=== PATIENT | female | born 1980 | race Caucasian/White ===

== ENCOUNTER 2018-07-24 13:49 | Emergency (ER) | payer OTHER ==
[2018-07-24 14:43] VITALS: O2SAT 98
[2018-07-24] MEDS ORDERED: Sodium Chloride 0.9% 1000 ML 1,000 ML IV STA (15:06)
[2018-07-24] MEDS ORDERED: MORPHINE SULFATE 4 MG INJ IV ONE ×2 (15:07→16:25)
[2018-07-24] MEDS ORDERED: Zofran 4 MG/2 ML VIAL IV ONE (15:09)
--- NOTE | 2018-07-24 15:12 | ERPHSYRPT ---
- History of Present Illness Time Seen by Provider: 07/24/18 15:01 Source: patient Exam Limitations: no limitations Patient Subjective Stated Complaint: MIGRAINE FOR 4 DAYS, VOMITING DAILY FROM PAIN. PAIN ON LEFT SIDE OF HEAD, BEHIND EYE. CONSTANT THROBBING PAIN. Triage Nursing Assessment: PAIN 10/10 BEHIND LEFT EYE. ALERT AND ORIENTED. ABLE TO WALKIN INTO ED. TEARFUL. Physician History: 37-year-old white female arrives with complaint of headache left-sided head symptoms for 4 days also some nausea no vomiting no fevers some photophobia. Past medical history includes migraines, diabetes type 1, depression. Past surgical history includes tubal ligation, hand surgery back surgery. Timing/Duration: day(s) (4 days) Severity: moderate Modifying Factors: Improves With: nothing Associated Symptoms: nausea, headaches, other (patient states her blood sugar was running a low so she stopped her insulin pump), No vomiting, No abdominal pain, No shortness of breath, No diaphoresis, No cough, No chills, No chest pain , No fever, No loss of appetite, No malaise, No rash, No syncope, No seizure Allergies/Adverse Reactions: No Known Drug Allergies Allergy (Unverified 07/24/18 14:11) Home Medications: Amitriptyline HCl 10 mg [Elavil 10 mg] 10 mg PO HS 07/24/18 [History] Bupropion HCl 150 mg Sr [Wellbutrin SR 150 MG] 300 mg PO DAILY 07/24/18 [ History] Hx Tetanus, Diphtheria Vaccination/Date Given: No Hx Influenza Vaccination/Date Given: No Hx Pneumococcal Vaccination/Date Given: No Immunizations Up to Date: No - Review of Systems Constitutional: No Fever, No Chills Eyes: Photophobia, No Discharge, No Eye Pain, No Eye Redness, No Itchy, No Tearing, No Vision Changes, No Double Vision Ears, Nose, & Throat: No Symptoms Respiratory: No Cough, No Dyspnea Cardiac: No Chest Pain, No Edema, No Syncope Abdominal/Gastrointestinal: No Abdominal Pain, No Nausea, No Vomiting, No Diarrhea Genitourinary Symptoms: No Dysuria Musculoskeletal: No Back Pain, No Neck Pain Skin: No Rash Neurological: Headache, No Dizziness, No Focal Weakness, No Gait Changes, No Irritability, No Lethargy, No Paralysis, No Parasthesia, No Seizure, No Sensory Changes, No Speech Changes, No Tics, No Tremors, No Vertigo Psychological: No Symptoms Endocrine: No Symptoms All Other Systems: Reviewed and Negative - Past Medical History Pertinent Past Medical History: Yes Neurological History: Migraines ENT History: No Pertinent History Cardiac History: No Pertinent History Respiratory History: No Pertinent History Endocrine Medical History: Diabetes Type I Musculoskeletal History: No Pertinent History GI Medical History: No Pertinent History History: No Pertinent History Psycho-Social History: Depression - Past Surgical History Past Surgical History: Yes Female Surgical History: Section, Tubal Ligation Other Surgical History: 3 HAND SURGERY, BACK SURGERY, X 2 - Social History Smoking Status: Current every day smoker Exposure to second hand smoke: Yes Drug Use: none Patient Lives Alone: No - Female History Hx Last Menstrual Period: 07/09/13 Hx Now: No - Nursing Vital Signs Nursing Vital Signs: Initial Vital Signs Pulse Rate 84 07/24/18 13:50 Respiratory Rate 22 07/24/18 13:50 Blood Pressure 108/76 07/24/18 13:50 O2 Sat by Pulse Oximetry 97 07/24/18 13:50 Pain Scale Pain Intensity 8 - Physical Exam General Appearance: moderate distress, alert Eye Exam: PERRL/EOMI, eyes nml inspection Ears, Nose, Throat Exam: normal ENT inspection, TMs normal, pharynx normal, moist mucous membranes Neck Exam: normal inspection, non-tender, supple, full range of motion Respiratory Exam: normal breath sounds, lungs clear, No respiratory distress Cardiovascular Exam: regular rate/rhythm, normal heart sounds, normal peripheral pulses, capillary refill <2 sec Gastrointestinal/Abdomen Exam: soft, normal bowel sounds, No tenderness, No mass Back Exam: normal inspection, normal range of motion, No CVA tenderness, No vertebral tenderness Extremity Exam: normal inspection, normal range of motion, pelvis stable Neurologic Exam: alert, oriented x 3, cooperative, 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, normal mood/affect, nml cerebellar function, nml station & gait, sensation nml, No motor deficits Skin Exam: normal color, warm, dry, No rash Lymphatic Exam: No adenopathy SpO2 Interpretation: normal (98%) SpO2: 98 Ordered Tests: Active Orders 24 hr Category Date Time Status IV Insertion STAT Care 07/24/18 15:06 Active CBC W DIFF Stat Lab 07/24/18 15:25 Completed CMP Stat Lab 07/24/18 15:25 Completed Medication Summary Discontinued Medications Generic Name Dose Route Start Last Admin Trade Name Behzad PRN Reason Stop Dose Admin Sodium Chloride 1,000 mls @ 999 mls/hr 07/24/18 15:06 07/24/18 17:03 Sodium Chloride 0.9% 1000 Ml IV 07/24/18 16:06 Infused .Q1H1M STA Infusion Sodium Chloride Confirm 07/24/18 15:14 Sodium Chloride 0.9% 1000 Ml Administered 07/24/18 15:15 Dose 1,000 mls @ ud .ROUTE .STK-MED ONE Morphine Sulfate 4 mg 07/24/18 15:07 07/24/18 15:31 Morphine Sulfate 4 Mg Inj IV 07/24/18 15:08 4 mg STAT ONE Administration Morphine Sulfate Confirm 07/24/18 15:14 Morphine Sulfate 4 Mg Inj Administered 07/24/18 15:15 Dose 4 mg .ROUTE .STK-MED ONE Morphine Sulfate 4 mg 07/24/18 16:25 07/24/18 16:29 Morphine Sulfate 4 Mg Inj IV 07/24/18 16:26 4 mg STAT ONE Administration Morphine Sulfate Confirm 07/24/18 16:27 Morphine Sulfate 4 Mg Inj Administered 07/24/18 16:28 Dose 4 mg .ROUTE .STK-MED ONE Ondansetron HCl 4 mg 07/24/18 15:09 07/24/18 15:31 Zofran 4 Mg/2 Ml Vial IV 07/24/18 15:10 4 mg STAT ONE Administration Ondansetron HCl Confirm 07/24/18 15:14 Zofran 4 Mg/2 Ml Vial Administered 07/24/18 15:15 Dose 4 mg .ROUTE .STK-MED ONE Lab/Rad Data: Laboratory Result Diagrams 07/24/18 15:25 07/24/18 15:25 Laboratory Results 07/24/18 07/24/18 Range/Units 15:25 15:25 WBC 15.7 H (4.0-10.5) K/mm3 RBC 4.65 (4.1-5.4) M/mm3 Hgb 14.6 (12.0-16.0) gm/dl Hct 44.5 (35-47) % MCV 95.7 (78-100) fl MCH 31.4 (26-32) pg MCHC 32.8 (32-36) g/dl RDW 12.6 (11.5-14.0) % Plt Count 206 (150-450) K/mm3 MPV 11.0 H (6-9.5) fl Gran % 89.0 H (36.0-66.0) % Eos # (Auto) 0.02 (0-0.5) Absolute Lymphs (auto) 1.09 (1.0-4.6) Absolute Monos (auto) 0.58 (0.0-1.3) Lymphocytes % 7.0 L (24.0-44.0) % Monocytes % 3.7 (0.0-12.0) % Eosinophils % 0.1 (0.00-5.0) % Basophils % 0.2 (0.0-0.4) % Absolute Granulocytes 13.96 H (1.4-6.9) Basophils # 0.03 (0-0.4) Sodium 138 (137-145) mmol/L Potassium 4.3 (3.5-5.1) mmol/L Chloride 106 (98-107) mmol/L Carbon Dioxide 23 (22-30) mmol/L Anion Gap 13.3 (5-15) MEQ/L BUN 16 (7-17) mg/dL Creatinine 0.61 (0.52-1.04) mg/dL Estimated GFR > 60.0 ML/MIN Glucose 204 H (74-106) mg/dL Calcium 8.6 (8.4-10.2) mg/dL Total Bilirubin 0.90 (0.2-1.3) mg/dL AST 20 (14-36) U/L ALT 13 (0-35) U/L Alkaline Phosphatase 77 (38-126) U/L Serum Total Protein 6.6 (6.3-8.2) g/dL Albumin 3.4 L (3.5-5.0) g/dL - Progress Progress: improved Progress Note: 07/24/18 17:13 Patient feeling better after 8 mg morphine and 1 L of normal saline and 4 mg of Zofran. Will discharge patient. - Departure Departure Disposition: Home Clinical Impression: Migraine headache Qualifiers: Migraine type: unspecified Status migrainosus presence: without status migrainosus Intractability: not intractable Qualified Code(s): G43.909 - Migraine, unspecified, not intractable, without status migrainosus Condition: Fair Critical Care Time: No Referrals: EILEEN AREVALO [Primary Care Provider] - Instructions: Headache, Adult (DC) Additional Instructions: Return home. Rest in a dark quiet room. Followup with your family . Return for acute distress or for severe symptoms.
[2018-07-24] MEDS ORDERED: Sodium Chloride 0.9% 1000 ML 1,000 ML ONE (15:14)
[2018-07-24] MEDS ORDERED: Zofran 4 MG/2 ML VIAL ONE (15:14)
[2018-07-24] MEDS ORDERED: MORPHINE SULFATE 4 MG INJ ONE ×2 (15:14→16:27)
[2018-07-24 15:30] LABS: BASOPHIL % 0.2 % (0.0-0.4); Basophil (Absolute #) 0.03 (0-0.4); Eosinophil % 0.1 % (0.00-5.0); Eosinophil (Absolute #) 0.02 (0-0.5); Granulocyte Absolute (ANC) 13.96 (1.4-6.9); Hematocrit 44.5 % (35-47); Hemoglobin 14.6 gm/dl (12.0-16.0); Lymphocyte (Absolute #) 1.09 (1.0-4.6); Mean Cell Volume 95.7 fl (78-100); Mean Corpuscular Hemoglobin 31.4 pg (26-32); Mean Corpuscular Hgb Concent. 32.8 g/dl (32-36); Monocyte (Absolute #) 0.58 (0.0-1.3); Monocytes % 3.7 % (0.0-12.0); Platelet Count 206 K/mm3 (150-450); Red Blood Count 4.65 M/mm3 (4.1-5.4); Red Cell Distribution Width 12.6 % (11.5-14.0); White Blood Count 15.7 K/mm3 (4.0-10.5)
[2018-07-24 16:15] LABS: ALBUMIN 3.4 g/dL (3.5-5.0); ALKALINE PHOSPHATASE 77 U/L (38-126); ANION GAP 13.3 MEQ/L (5-15); BLOOD UREA NITROGEN 16 mg/dL (7-17); CHLORIDE 106 mmol/L (98-107); Calcium 8.6 mg/dL (8.4-10.2); Carbon Dioxide 23 mmol/L (22-30); Creatinine 1 0.61 mg/dL (0.52-1.04); Glucose 204 mg/dL (74-106); Potassium 4.3 mmol/L (3.5-5.1); SGOT/AST 20 U/L (14-36); SGPT/ALT 13 U/L (0-35); SODIUM 138 mmol/L (137-145); Total Protein 6.6 g/dL (6.3-8.2)
[2018-07-24 17:25] VITALS: BP 113/78; PULSE 72
== END 2018-07-24 17:26 | disposition home or self-care (01) ==
LOC: ED 13:49
DX: G43.909 Migraine, unspecified, not intractable, without status migrainosus (principal)
CPT/HCPCS: 36415; 80053; 85025; 96360; 96374; 96375; 96376; 99284; J2270; J2405

== ENCOUNTER 2021-08-23 11:24 | Emergency (ER) | payer OTHER ==
--- NOTE | 2021-08-23 11:55 | ERPHSYRPT ---
- History of Present Illness Time Seen by Provider: 08/23/21 11:45 Source: patient Exam Limitations: no limitations Patient Subjective Stated Complaint: Dizziness Triage Nursing Assessment: Patient brought back to ED per w/c and transferred self to bed. Patient A+O X3. Patient's skin pink, warm and dry. Patient complains of dizziness that started at 1900 last night then she started vomiting. Patient states she has not stopped vomiting since last night. Patient complains of abdominal pain 5/10. Physician History: This is a 40-year-old obese white female patient of Dr. Chandan Woodard has history of diabetes and depression and is a current daily smoker of cigarettes and presents with severe dizziness that began at 7 PM last evening. Subsequently, she experienced multiple episodes of vomiting and diarrhea as well as having severe, significant abdominal pain today. She denies chest pain. She denies cough. She knows no other individuals similar symptoms or who has been diagnosed with flus. Patient states her mouth is on fire from vomiting so many times. She has had sections in the past but no other abdominal surgeries. She denies having fevers. She denies dysuria or hematuria. She denies trauma to her head. She has no neck pain. Timing/Duration: yesterday Severity: moderate Associated Symptoms: nausea, vomiting, abdominal pain, No shortness of breath, No chest pain, No fever, No headaches Allergies/Adverse Reactions: No Known Drug Allergies Allergy (Verified 08/23/21 11:32) Hx Tetanus, Diphtheria Vaccination/Date Given: No Hx Influenza Vaccination/Date Given: Yes Hx Pneumococcal Vaccination/Date Given: No Immunizations Up to Date: Yes Travel Risk - International Travel Have you traveled outside of the country in past 3 weeks: No - Coronavirus Screening Are you exhibiting any of the following symptoms?: No Close contact with a COVID-19 positive Pt in past 14-21 Days: No - Vaccine Status Have you recieved a Covid-19 vaccination: Yes 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: [employer] - Review of Systems Constitutional: No Symptoms Eyes: No Symptoms Ears, Nose, & Throat: No Symptoms Respiratory: No Symptoms Cardiac: No Symptoms Abdominal/Gastrointestinal: Abdominal Pain, Nausea, Vomiting, Diarrhea, No Constipation Genitourinary Symptoms: No Symptoms Musculoskeletal: No Symptoms Skin: No Symptoms Neurological: Dizziness, Headache Psychological: No Symptoms Endocrine: No Symptoms Hematologic/Lymphatic: No Symptoms Immunological/Allergic: No Symptoms All Other Systems: Reviewed and Negative - Past Medical History Pertinent Past Medical History: Yes Neurological History: Migraines ENT History: No Pertinent History Cardiac History: No Pertinent History Respiratory History: No Pertinent History Endocrine Medical History: Diabetes Type I Musculoskeletal History: No Pertinent History GI Medical History: No Pertinent History History: No Pertinent History Psycho-Social History: Depression - Past Surgical History Past Surgical History: Yes Female Surgical History: Section, Tubal Ligation Other Surgical History: 3 HAND SURGERY, BACK SURGERY, X 2 - Social History Smoking Status: Current every day smoker How long have you smoked: years Exposure to second hand smoke: Yes Drug Use: none Patient Lives Alone: No - Female History Hx Last Menstrual Period: July 28 Hx Now: No - Nursing Vital Signs Nursing Vital Signs: Initial Vital Signs Temperature 97.6 F 08/23/21 11:33 Pulse Rate 81 08/23/21 11:33 Respiratory Rate 18 08/23/21 11:33 Blood Pressure 178/89 08/23/21 11:33 O2 Sat by Pulse Oximetry 99 08/23/21 11:33 Pain Scale Pain Intensity 4 - Physical Exam General Appearance: mild distress, alert, anxiety, obese Eye Exam: PERRL/EOMI, eyes nml inspection Ears, Nose, Throat Exam: normal ENT inspection, moist mucous membranes Neck Exam: normal inspection, non-tender, supple, full range of motion Respiratory Exam: normal breath sounds, lungs clear, airway intact, No chest tenderness, No respiratory distress Cardiovascular Exam: regular rate/rhythm, normal heart sounds, normal peripheral pulses Gastrointestinal/Abdomen Exam: soft, normal bowel sounds, tenderness (Generalized), guarding (Generalized to palpation), No pulsatile mass, No rebound Pelvic Exam: not done Rectal Exam: not done Back Exam: normal inspection, normal range of motion, No CVA tenderness, No vertebral tenderness Extremity Exam: normal inspection, normal range of motion, pelvis stable Neurologic Exam: alert, oriented x 3, cooperative, hatchery 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 No comparison EKG.) Ordered Tests: Active Orders 24 hr Category Date Time Status EKG-ER Only STAT Care 08/23/21 12:03 Active IV Insertion STAT Care 08/23/21 12:03 Active ABDOMEN AND PELVIS W/0 CONTRAS [CT] Stat Exams 08/23/21 12:05 Completed HEAD WITHOUT CONTRAST [CT] Stat Exams 08/23/21 12:04 Completed AMYLASE Stat Lab 08/23/21 12:07 Completed CBC W DIFF Stat Lab 08/23/21 12:03 Completed CMP Stat Lab 08/23/21 12:07 Completed CULTURE,URINE Stat Lab 08/23/21 12:07 Received HCG,QUALITATIVE URINE Stat Lab 08/23/21 12:07 Completed LIPASE Stat Lab 08/23/21 12:07 Completed Lactic Acid Stat Lab 08/23/21 12:07 Completed MAGNESIUM Stat Lab 08/23/21 12:07 Completed UA W/RFX CULTURE Stat Lab 08/23/21 12:07 Completed Medication Summary Generic Name Dose Route Start Last Admin Trade Name Freq PRN Reason Stop Dose Admin Sodium Chloride 1,000 mls @ 999 mls/hr 08/23/21 12:50 08/23/21 13:21 Sodium Chloride 0.9% 1000 Ml IV 08/23/21 13:50 999 mls/hr .Q1H1M STA Administration Sodium Chloride 500 mls @ 500 mls/hr 08/23/21 13:32 Sodium Chloride 0.9% 500 Ml IV 08/23/21 14:31 .Q1H ONE Discontinued Medications Generic Name Dose Route Start Last Admin Trade Name Freq PRN Reason Stop Dose Admin Hydromorphone HCl 1 mg 08/23/21 12:06 08/23/21 12:09 Hydromorphone 1 Mg/1ml Inj 1 Mg/Ml Syringe IV 08/23/21 12:07 1 mg STAT ONE Administration Hydromorphone HCl Confirm 08/23/21 12:08 Hydromorphone 1 Mg/1ml Inj 1 Mg/Ml Syringe Administered 08/23/21 12:09 Dose 1 mg .ROUTE .STK-MED ONE Sodium Chloride 1,000 mls @ 999 mls/hr 08/23/21 12:03 08/23/21 13:17 Sodium Chloride 0.9% 1000 Ml IV 08/23/21 13:03 Infused .Q1H1M STA Infusion Sodium Chloride Confirm 08/23/21 12:08 Sodium Chloride 0.9% 1000 Ml Administered 08/23/21 12:09 Dose 1,000 mls @ ud .ROUTE .STK-MED ONE Sodium Chloride Confirm 08/23/21 13:20 Sodium Chloride 0.9% 1000 Ml Administered 08/23/21 13:21 Dose 1,000 mls @ ud .ROUTE .STK-MED ONE Meclizine HCl 25 mg 08/23/21 13:47 Meclizine Hcl 25 Mg Tablet PO 08/23/21 13:48 STAT ONE Ondansetron HCl 4 mg 08/23/21 12:03 08/23/21 12:09 Ondansetron Hcl 4 Mg/2 Ml Vial IV 08/23/21 12:04 4 mg STAT ONE Administration Ondansetron HCl Confirm 08/23/21 12:08 Ondansetron Hcl 4 Mg/2 Ml Vial Administered 08/23/21 12:09 Dose 4 mg .ROUTE .STK-MED ONE Lab/Rad Data: Laboratory Result Diagrams 08/23/21 12:03 08/23/21 12:07 Laboratory Results 08/23/21 08/23/21 08/23/21 Range/Units 12:07 12:07 12:07 WBC (4.0-10.5) x10^3/uL RBC (4.1-5.4) x10^6/uL Hgb (12.0-16.0) g/dL Hct (35-47) % MCV (78-100) fL MCH (26-32) pg MCHC (32-36) g/dL RDW (11.5-14.0) % Plt Count (150-450) x10^3/uL MPV (7.5-11.0) fL Gran % (36.0-66.0) % Immature Gran % (Auto) (0.00-0.4) % Nucleat RBC Rel Count (0.00-0.1) % Eos # (Auto) (0-0.5) x10^3/uL Immature Gran # (Auto) (0.00-0.03) x10^3u/L Absolute Lymphs (auto) (1.0-4.6) x10^3/uL Absolute Monos (auto) (0.0-1.3) x10^3/uL Absolute Nucleated RBC (0.00-0.01) x10^3u/L Lymphocytes % (24.0-44.0) % Monocytes % (0.0-12.0) % Eosinophils % (0.00-5.0) % Basophils % (0.0-0.4) % Absolute Granulocytes (1.4-6.9) x10^3/uL Basophils # (0-0.4) x10^3/uL Sodium (137-145) mmol/L Potassium (3.5-5.1) mmol/L Chloride (98-107) mmol/L Carbon Dioxide (22-30) mmol/L Anion Gap (5-15) MEQ/L BUN (7-17) mg/dL Creatinine (0.52-1.04) mg/dL Estimated GFR ML/MIN Glucose (74-106) mg/dL Lactic Acid (0.4-2.0) Calcium (8.4-10.2) mg/dL Magnesium (1.6-2.3) mg/dL Total Bilirubin (0.2-1.3) mg/dL AST (14-36) U/L ALT (0-35) U/L Alkaline Phosphatase (38-126) U/L Serum Total Protein (6.3-8.2) g/dL Albumin (3.5-5.0) g/dL Amylase 62 (30-110) U/L Lipase 16 L (23-300) U/L Urinalys Dipstick Clnc MAIN LAB Urine Color DARK YELLOW (YELLOW) Urine Appearance CLEAR (CLEAR) Urine pH 5.5 (5-6) Ur Specific [place] >=1.030 (1.005-1.025) POC Urine Protein Conf 100 (Negative) Urine Ketones MODERATE-40 (NEGATIVE) Urine Nitrite NEGATIVE (NEGATIVE) Urine Bilirubin NEGATIVE (NEGATIVE) Urine Urobilinogen 0.2 (0-1) mg/dL Urine Leukocytes NEGATIVE (NEGATIVE) Urine WBC (Auto) 0-2 (0-5) /HPF Urine RBC (Auto) NONE (0-2) /HPF U Epithel Cells (Auto) RARE (FEW) /HPF Urine Bacteria (Auto) RARE (NEGATIVE) /HPF Urine RBC TRACE-LYSED (0-5) Ghassan/ul Urine Mucus (Auto) SLIGHT (NEGATIVE) /HPF Ur Culture Indicated? YES Urine Glucose NEGATIVE (NEGATIVE) mg/dL Urine HCG, Qual NEGATIVE (Negative) 08/23/21 08/23/21 08/23/21 Range/Units 12:07 12:07 12:03 WBC 20.0 H (4.0-10.5) x10^3/uL RBC 4.69 (4.1-5.4) x10^6/uL Hgb 14.8 (12.0-16.0) g/dL Hct 44.0 (35-47) % MCV 93.8 (78-100) fL MCH 31.6 (26-32) pg MCHC 33.6 (32-36) g/dL RDW 12.4 (11.5-14.0) % Plt Count 251 (150-450) x10^3/uL MPV 11.6 H (7.5-11.0) fL Gran % 92.4 H (36.0-66.0) % Immature Gran % (Auto) 0.4 (0.00-0.4) % Nucleat RBC Rel Count 0.0 (0.00-0.1) % Eos # (Auto) 0 (0-0.5) x10^3/uL Immature Gran # (Auto) 0.08 H (0.00-0.03) x10^3u/L Absolute Lymphs (auto) 0.75 L (1.0-4.6) x10^3/uL Absolute Monos (auto) 0.65 (0.0-1.3) x10^3/uL Absolute Nucleated RBC 0.00 (0.00-0.01) x10^3u/L Lymphocytes % 3.8 L (24.0-44.0) % Monocytes % 3.3 (0.0-12.0) % Eosinophils % 0.0 (0.00-5.0) % Basophils % 0.1 (0.0-0.4) % Absolute Granulocytes 18.48 H (1.4-6.9) x10^3/uL Basophils # 0.02 (0-0.4) x10^3/uL Sodium 140 (137-145) mmol/L Potassium 3.6 (3.5-5.1) mmol/L Chloride 103 (98-107) mmol/L Carbon Dioxide 23 (22-30) mmol/L Anion Gap 17.8 H (5-15) MEQ/L BUN 19 H (7-17) mg/dL Creatinine 0.76 (0.52-1.04) mg/dL Estimated GFR > 60.0 ML/MIN Glucose 209 H (74-106) mg/dL Lactic Acid 2.7 H (0.4-2.0) Calcium 9.8 (8.4-10.2) mg/dL Magnesium 1.6 (1.6-2.3) mg/dL Total Bilirubin 1.00 (0.2-1.3) mg/dL AST 30 (14-36) U/L ALT 17 (0-35) U/L Alkaline Phosphatase 97 (38-126) U/L Serum Total Protein 8.2 (6.3-8.2) g/dL Albumin 4.6 (3.5-5.0) g/dL Amylase (30-110) U/L Lipase (23-300) U/L Urinalys Dipstick Clnc Urine Color (YELLOW) Urine Appearance (CLEAR) Urine pH (5-6) Ur Specific [place] (1.005-1.025) POC Urine Protein Conf (Negative) Urine Ketones (NEGATIVE) Urine Nitrite (NEGATIVE) Urine Bilirubin (NEGATIVE) Urine Urobilinogen (0-1) mg/dL Urine Leukocytes (NEGATIVE) Urine WBC (Auto) (0-5) /HPF Urine RBC (Auto) (0-2) /HPF U Epithel Cells (Auto) (FEW) /HPF Urine Bacteria (Auto) (NEGATIVE) /HPF Urine RBC (0-5) Ghassan/ul Urine Mucus (Auto) (NEGATIVE) /HPF Ur Culture Indicated? Urine Glucose (NEGATIVE) mg/dL Urine HCG, Qual (Negative) - Progress Progress: improved Progress Note: 08/23/21 13:28 CAT scan of the abdomen pelvis shows a small hiatal hernia with partial intrathoracic stomach. There is bilateral nonobstructing renal calculi. CAT scan of the head without contrast shows a remote infarct of the left thalamus. There is no acute intracranial abnormalities. There is the presence of bilateral paranasal sinus disease. I reviewed the above with the patient and her significant other. 08/23/21 13:48 Counseled pt/family regarding: lab results, diagnosis, need for follow-up, rad results - Departure Departure Disposition: Home Clinical Impression: Paranasal sinus disease, Nausea & vomiting, Dizziness Condition: Stable Critical Care Time: No Referrals: EILEEN STANTON [Primary Care Provider] - Follow up/PCP as directed Additional Instructions: Drink plenty of fluids. Take your medication as prescribed. Follow-up with your primary care physician for further management. Prescriptions: Ondansetron ODT 4 MG [Zofran Odt 4 mg] 4 mg PO Q6H PRN PRN #10 tablet PRN Reason: Vomiting Meclizine HCl 25 mg [Antivert 25 mg] 25 mg PO Q8H PRN #10 tablet PRN Reason: Dizziness Azithromycin 250 mg [Zithromax 250 MG TABLET] 250 mg PO ZPACK #6 tablet
[2021-08-23] MEDS ORDERED: Zofran 4 MG/2 ML VIAL IV ONE (12:03)
[2021-08-23] MEDS ORDERED: Sodium Chloride 0.9% 1000 ML 1,000 ML IV STA ×3 (12:03→14:27)
[2021-08-23] MEDS ORDERED: Hydromorphone 1 mg/ml Injection IV ONE (12:06)
[2021-08-23] MEDS ORDERED: Zofran 4 MG/2 ML VIAL ONE (12:08)
[2021-08-23] MEDS ORDERED: Sodium Chloride 0.9% 1000 ML 1,000 ML ONE ×3 (12:08→14:25)
[2021-08-23] MEDS ORDERED: Hydromorphone 1 mg/ml Injection ONE (12:08)
[2021-08-23 12:16] LABS: Absolute Neutrophil Ct (ANC) 18.48 x10^3/uL (1.4-6.9); Basophil (Absolute #) 0.02 x10^3/uL (0-0.4); Eosinophil (Absolute #) 0 x10^3/uL (0-0.5); Hemoglobin 14.8 g/dL (12.0-16.0); Lymphocyte (Absolute #) 0.75 x10^3/uL (1.0-4.6); Lymphocytes % 3.8 % (24.0-44.0); Mean Cell Volume 93.8 fL (78-100); Mean Corpuscular Hemoglobin 31.6 pg (26-32); Mean Corpuscular Hgb Concent. 33.6 g/dL (32-36); Mean Platelet Volume 11.6 fL (7.5-11.0); Monocyte (Absolute #) 0.65 x10^3/uL (0.0-1.3); Monocytes % 3.3 % (0.0-12.0); Neutrophil % 92.4 % (36.0-66.0); Platelet Count 251 x10^3/uL (150-450); Red Blood Count 4.69 x10^6/uL (4.1-5.4); Red Cell Distribution Width 12.4 % (11.5-14.0)
[2021-08-23 12:20] LABS: Appearance CLEAR (CLEAR); Bilirubin NEGATIVE (NEGATIVE); Glucose NEGATIVE (NEGATIVE); Ketones MODERATE-40 (NEGATIVE); Specific Gravity >=1.030 (1.005-1.025)
[2021-08-23 12:21] LABS: Dipstick done @ ? MAIN LAB; Nitrite NEGATIVE (NEGATIVE); Ph 5.5 (5-6); Protein,Urine Dip 100 (Negative); RBC TRACE-LYSED Ery/ul (0-5); Urobilinogen 0.2 mg/dL (0-1)
[2021-08-23 12:24] LABS: ALBUMIN 4.6 g/dL (3.5-5.0); ALKALINE PHOSPHATASE 97 U/L (38-126); AMYLASE 62 U/L (30-110); ANION GAP 17.8 MEQ/L (5-15); BLOOD UREA NITROGEN 19 mg/dL (7-17); Bacteria RARE /HPF (NEGATIVE); CHLORIDE 103 mmol/L (98-107); Calcium 9.8 mg/dL (8.4-10.2); Carbon Dioxide 23 mmol/L (22-30); Creatinine 1 0.76 mg/dL (0.52-1.04); EST GLOMERULAR FILTRATION RATE > 60.0 ML/MIN; Epithelial Cells RARE /HPF (FEW); Glucose 209 mg/dL (74-106); LIPASE 16 U/L (23-300); MAGNESIUM 1.6 mg/dL (1.6-2.3); Mucus SLIGHT /HPF (NEGATIVE); Potassium 3.6 mmol/L (3.5-5.1); SGOT/AST 30 U/L (14-36); SGPT/ALT 17 U/L (0-35); SODIUM 140 mmol/L (137-145); Total Protein 8.2 g/dL (6.3-8.2); WBC 0-2 /HPF (0-5)
[2021-08-23 12:25] LABS: Urine Cultured Indicated? YES
--- NOTE | 2021-08-23 13:21 | XRAY ---
Indication: Dizziness. Multiple contiguous axial images obtained through the head without contrast. Graft comparison: None Ventriculosulcal pattern appears symmetric. 9 mm remote infarct left thalamus. No acute intracranial hemorrhage, abnormal extra-axial fluid collection, or mass effect are fourth ventricle is midline without hydrocephalus. Bony calvarium intact. Mild mucosal thickening both ethmoid, both maxillary, and left frontal sinuses. Mastoid air cells are clear. Impression: Small remote lacunar infarct left thalamus. No acute intracranial abnormalities. Incidental paranasal sinus disease.
--- NOTE | 2021-08-23 13:23 | XRAY ---
Indication: Abdomen pain. Multiple contiguous images obtained through the abdomen and pelvis without contrast. Comparison: None Lung bases demonstrate scattered subsegmental atelectasis/scarring, right greater than left. No focal infiltrate or effusion. Heart borderline enlarged. Small hiatal hernia with partial intrathoracic stomach. Noncontrasted stomach and bowel loops appear nonobstructed. Normal appendix. A few nonobstructing bilateral renal punctate calculi. No free fluid/air. Remaining liver, gallbladder, pancreas, spleen, adrenal glands, kidneys, ureters, bladder, and aorta are unremarkable for noncontrast exam. Minimal aortoiliac calcifications without AAA. Osseous structures intact with minimal degenerative changes throughout the spine. Impression: 1. Scattered bibasilar subsegmental atelectasis/scarring, small hiatal hernia with partial intrathoracic stomach, and nonobstructing bilateral renal micro-calculi. 2. Remaining CT abdomen/pelvis without contrast exam is negative.
[2021-08-23] MEDS ORDERED: Sodium Chloride 0.9% 500 ML 500 ML IV ONE (13:32)
[2021-08-23] MEDS ORDERED: ANTIVERT 25 MG PO ONE (13:47)
[2021-08-23 14:09] VITALS: O2SAT 98
[2021-08-23] MEDS ORDERED: ANTIVERT 25 MG ONE (14:41)
[2021-08-23 15:03] VITALS: BP 111/90; PULSE 72
== END 2021-08-23 15:27 | disposition home or self-care (01) ==
LOC: ED 11:24
DX: J32.8 Other chronic sinusitis (principal); R42 Dizziness and giddiness; R11.2 Nausea with vomiting, unspecified; E10.9 Type 1 diabetes mellitus without complications; Z72.0 Tobacco use
CPT/HCPCS: 36000; 36415; 70450; 74176; 80053; 81015; 81025; 82150; 83605; 83690; 83735; 85025; 87086; 93005; 96360; 96374; 96375; 99285; J1170; J2405; A9270-GY

== ENCOUNTER 2021-08-25 13:13 | Emergency (ER) | payer OTHER ==
[2021-08-25] MEDS ORDERED: Zofran 4 MG/2 ML VIAL IV ONE (13:22)
[2021-08-25] MEDS ORDERED: Sodium Chloride 0.9% 1000 ML 1,000 ML IV STA ×2 (13:22→16:23)
--- NOTE | 2021-08-25 13:22 | ERPHSYRPT ---
- History of Present Illness Time Seen by Provider: 08/25/21 13:22 Historian: patient Exam Limitations: no limitations Physician History: This is a 40-year-old white female patient of Dr. Chandan Woodard who was seen in this emergency department on 08/23/2021 with complaints of dizziness, abdominal pain and vomiting. 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 In addition it showed paranasal sinus disease. A CAT scan on the same date was negative for any acute intra-abdominal or intrapelvic abnormality but it did show partial intrathoracic stomach. Nonobstructing bilateral renal calculi and bibasilar atelectasis or scarring. Patient has a history of migraine headache, diabetes and depression. Patient was discharged to home with a prescription for Zofran, meclizine and Z- Luis Armando. In the last couple days the patient states that she still has some persistent abdominal pain but has improved. She also has persistent nausea but has not had any vomiting issues. Patient filled her prescriptions and took them as prescribed. Timing/Duration: today Activities at Onset: none Abdominal Pain Onset Location: LUQ, RLQ Severity of Pain-Max: mild Severity of Pain-Current: mild (To moderate) Modifying Factors: Improves With: nothing Associated Symptoms: other (Nausea) Previous symptoms: same symptoms as today, recently seen, recently treated Allergies/Adverse Reactions: No Known Drug Allergies Allergy (Verified 08/25/21 13:29) Hx Tetanus, Diphtheria Vaccination/Date Given: No Hx Influenza Vaccination/Date Given: Yes Hx Pneumococcal Vaccination/Date Given: No Travel Risk - Vaccine Status Have you recieved a Covid-19 vaccination: Yes 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 - Past Medical History Pertinent Past Medical History: Yes Neurological History: Migraines ENT History: No Pertinent History Cardiac History: No Pertinent History Respiratory History: No Pertinent History Endocrine Medical History: Diabetes Type I Musculoskeletal History: No Pertinent History GI Medical History: No Pertinent History History: No Pertinent History Psycho-Social History: Depression - Past Surgical History Past Surgical History: Yes Female Surgical History: Section, Tubal Ligation Other Surgical History: 3 HAND SURGERY, BACK SURGERY, X 2 - Social History Smoking Status: Current every day smoker How long have you smoked: years Exposure to second hand smoke: Yes Drug Use: none Patient Lives Alone: No - Nursing Vital Signs Nursing Vital Signs: Initial Vital Signs Temperature 97.8 F 08/25/21 13:23 Pulse Rate 65 08/25/21 13:23 Respiratory Rate 16 08/25/21 13:23 Blood Pressure 130/70 08/25/21 13:23 O2 Sat by Pulse Oximetry 99 08/25/21 13:23 Pain Scale Pain Intensity 8 - Physical Exam General Appearance: no apparent distress, alert, anxiety, obese Eye Exam: PERRL/EOMI, eyes nml inspection Ears, Nose, Throat Exam: normal ENT inspection, moist mucous membranes Neck Exam: normal inspection, non-tender, supple, full range of motion Respiratory Exam: normal breath sounds, lungs clear, airway intact, No chest tenderness, No respiratory distress Cardiovascular Exam: regular rate/rhythm, normal heart sounds, normal peripheral pulses Gastrointestinal/Abdomen Exam: soft, normal bowel sounds, tenderness (Generalized abdomen), No guarding, No rebound Pelvic Exam: not done Rectal Exam: not done Back Exam: normal inspection, normal range of motion, No CVA tenderness, No vertebral tenderness Extremity Exam: normal inspection, normal range of motion, pelvis stable Neurologic Exam: alert, oriented x 3, cooperative, metal filer II-XII nml as tested, normal mood/affect, nml cerebellar function, nml station & gait, sensation nml Skin Exam: normal color, warm, dry Lymphatic Exam: No adenopathy SpO2 Interpretation: normal O2 Delivery: Room Air - Course Nursing assessment & vital signs reviewed: Yes Ordered Tests: Active Orders 24 hr Category Date Time Status IV Insertion STAT Care 08/25/21 13:22 Active AMYLASE Stat Lab 08/25/21 13:57 Completed CBC W DIFF Stat Lab 08/25/21 13:57 Completed CMP Stat Lab 08/25/21 13:57 Completed LIPASE Stat Lab 08/25/21 13:57 Completed Lactic Acid Stat Lab 08/25/21 13:54 Completed UA W/RFX CULTURE Stat Lab 08/25/21 15:14 Completed Urine Triage Profile Stat Lab 08/25/21 14:46 Completed Medication Summary Discontinued Medications Generic Name Dose Route Start Last Admin Trade Name Freq PRN Reason Stop Dose Admin Hydromorphone HCl 0.5 mg 08/25/21 17:39 Hydromorphone 1 Mg/1ml Inj 1 Mg/Ml Syringe IV 08/25/21 17:40 STAT ONE Sodium Chloride 1,000 mls @ 999 mls/hr 08/25/21 13:22 08/25/21 15:22 Sodium Chloride 0.9% 1000 Ml IV 08/25/21 14:22 Infused .Q1H1M STA Infusion Sodium Chloride Confirm 08/25/21 13:33 Sodium Chloride 0.9% 1000 Ml Administered 08/25/21 13:34 Dose 1,000 mls @ ud .ROUTE .STK-MED ONE Sodium Chloride 1,000 mls @ 999 mls/hr 08/25/21 16:23 08/25/21 17:39 Sodium Chloride 0.9% 1000 Ml IV 08/25/21 17:23 Infused .Q1H1M STA Infusion Sodium Chloride Confirm 08/25/21 16:33 Sodium Chloride 0.9% 1000 Ml Administered 08/25/21 16:34 Dose 1,000 mls @ ud .ROUTE .STK-MED ONE Ondansetron HCl 4 mg 08/25/21 13:22 08/25/21 13:34 Ondansetron Hcl 4 Mg/2 Ml Vial IV 08/25/21 13:23 4 mg STAT ONE Administration Ondansetron HCl Confirm 08/25/21 13:32 Ondansetron Hcl 4 Mg/2 Ml Vial Administered 08/25/21 13:33 Dose 4 mg .ROUTE .STK-MED ONE Lab/Rad Data: Laboratory Result Diagrams 08/25/21 13:57 08/25/21 13:57 Laboratory Results 08/25/21 08/25/21 08/25/21 Range/Units 15:14 14:46 14:10 WBC (4.0-10.5) x10^3/uL RBC (4.1-5.4) x10^6/uL Hgb (12.0-16.0) g/dL Hct (35-47) % MCV (78-100) fL MCH (26-32) pg MCHC (32-36) g/dL RDW (11.5-14.0) % Plt Count (150-450) x10^3/uL MPV (7.5-11.0) fL Gran % (36.0-66.0) % Immature Gran % (Auto) (0.00-0.4) % Nucleat RBC Rel Count (0.00-0.1) % Eos # (Auto) (0-0.5) x10^3/uL Immature Gran # (Auto) (0.00-0.03) x10^3u/L Absolute Lymphs (auto) (1.0-4.6) x10^3/uL Absolute Monos (auto) (0.0-1.3) x10^3/uL Absolute Nucleated RBC (0.00-0.01) x10^3u/L Lymphocytes % (24.0-44.0) % Monocytes % (0.0-12.0) % Eosinophils % (0.00-5.0) % Basophils % (0.0-0.4) % Absolute Granulocytes (1.4-6.9) x10^3/uL Basophils # (0-0.4) x10^3/uL Sodium (137-145) mmol/L Potassium (3.5-5.1) mmol/L Chloride (98-107) mmol/L Carbon Dioxide (22-30) mmol/L Anion Gap (5-15) MEQ/L BUN (7-17) mg/dL Creatinine (0.52-1.04) mg/dL Estimated GFR ML/MIN Glucose (74-106) mg/dL Lactic Acid (0.4-2.0) Calcium (8.4-10.2) mg/dL Total Bilirubin (0.2-1.3) mg/dL AST (14-36) U/L ALT (0-35) U/L Alkaline Phosphatase (38-126) U/L Serum Total Protein (6.3-8.2) g/dL Albumin (3.5-5.0) g/dL Amylase (30-110) U/L Lipase (23-300) U/L Urinalys Dipstick Clnc MAIN LAB Urine Color YELLOW (YELLOW) Urine Appearance CLEAR (CLEAR) Urine pH 6.0 (5-6) Ur Specific [place] 1.025 (1.005-1.025) POC Urine Protein Conf TRACE (Negative) Urine Ketones SMALL-15 (NEGATIVE) Urine Nitrite NEGATIVE (NEGATIVE) Urine Bilirubin SMALL (NEGATIVE) Urine Urobilinogen 4 (0-1) mg/dL Urine Leukocytes NEGATIVE (NEGATIVE) Urine WBC (Auto) 0-2 (0-5) /HPF Urine RBC (Auto) NONE (0-2) /HPF U Epithel Cells (Auto) RARE (FEW) /HPF Urine Bacteria (Auto) RARE (NEGATIVE) /HPF Urine RBC NEGATIVE (0-5) Ghassan/ul Urine Mucus (Auto) SLIGHT (NEGATIVE) /HPF Ur Culture Indicated? NO Urine Glucose NEGATIVE (NEGATIVE) mg/dL Urine Opiates Level NEGATIVE (NEGATIVE) Ur Methadone NEGATIVE (NEGATIVE) Urine Barbiturates NEGATIVE (NEGATIVE) Ur Phencyclidine (PCP) NEGATIVE (NEGATIVE) Urine Amphetamine NEGATIVE (NEGATIVE) U Benzodiazepine Level NEGATIVE (NEGATIVE) Urine Cocaine NEGATIVE (NEGATIVE) Urine Marijuana (THC) POSITIVE (NEGATIVE) Influenza Type A Ag NEGATIVE (NEGATIVE) Influenza Type B Ag NEGATIVE (NEGATIVE) RSV (PCR) NEGATIVE (Negative) SARS-CoV-2 (PCR) NEGATIVE (NEGATIVE) 08/25/21 08/25/21 08/25/21 Range/Units 13:57 13:57 13:54 WBC 13.8 H (4.0-10.5) x10^3/uL RBC 4.25 (4.1-5.4) x10^6/uL Hgb 13.5 (12.0-16.0) g/dL Hct 40.2 (35-47) % MCV 94.6 (78-100) fL MCH 31.8 (26-32) pg MCHC 33.6 (32-36) g/dL RDW 12.2 (11.5-14.0) % Plt Count 222 (150-450) x10^3/uL MPV 10.5 (7.5-11.0) fL Gran % 79.4 H (36.0-66.0) % Immature Gran % (Auto) 0.5 H (0.00-0.4) % Nucleat RBC Rel Count 0.0 (0.00-0.1) % Eos # (Auto) 0.01 (0-0.5) x10^3/uL Immature Gran # (Auto) 0.07 H (0.00-0.03) x10^3u/L Absolute Lymphs (auto) 1.92 (1.0-4.6) x10^3/uL Absolute Monos (auto) 0.79 (0.0-1.3) x10^3/uL Absolute Nucleated RBC 0.00 (0.00-0.01) x10^3u/L Lymphocytes % 14.0 L (24.0-44.0) % Monocytes % 5.7 (0.0-12.0) % Eosinophils % 0.1 (0.00-5.0) % Basophils % 0.3 (0.0-0.4) % Absolute Granulocytes 10.93 H (1.4-6.9) x10^3/uL Basophils # 0.04 (0-0.4) x10^3/uL Sodium 139 (137-145) mmol/L Potassium 4.0 (3.5-5.1) mmol/L Chloride 103 (98-107) mmol/L Carbon Dioxide 28 (22-30) mmol/L Anion Gap 12.8 (5-15) MEQ/L BUN 15 (7-17) mg/dL Creatinine 0.71 (0.52-1.04) mg/dL Estimated GFR > 60.0 ML/MIN Glucose 122 H (74-106) mg/dL Lactic Acid 1.4 (0.4-2.0) Calcium 8.8 (8.4-10.2) mg/dL Total Bilirubin 1.20 (0.2-1.3) mg/dL AST 29 (14-36) U/L ALT 15 (0-35) U/L Alkaline Phosphatase 75 (38-126) U/L Serum Total Protein 7.0 (6.3-8.2) g/dL Albumin 3.9 (3.5-5.0) g/dL Amylase 71 (30-110) U/L Lipase 40 (23-300) U/L Urinalys Dipstick Clnc Urine Color (YELLOW) Urine Appearance (CLEAR) Urine pH (5-6) Ur Specific [place] (1.005-1.025) POC Urine Protein Conf (Negative) Urine Ketones (NEGATIVE) Urine Nitrite (NEGATIVE) Urine Bilirubin (NEGATIVE) Urine Urobilinogen (0-1) mg/dL Urine Leukocytes (NEGATIVE) Urine WBC (Auto) (0-5) /HPF Urine RBC (Auto) (0-2) /HPF U Epithel Cells (Auto) (FEW) /HPF Urine Bacteria (Auto) (NEGATIVE) /HPF Urine RBC (0-5) Ghassan/ul Urine Mucus (Auto) (NEGATIVE) /HPF Ur Culture Indicated? Urine Glucose (NEGATIVE) mg/dL Urine Opiates Level (NEGATIVE) Ur Methadone (NEGATIVE) Urine Barbiturates (NEGATIVE) Ur Phencyclidine (PCP) (NEGATIVE) Urine Amphetamine (NEGATIVE) U Benzodiazepine Level (NEGATIVE) Urine Cocaine (NEGATIVE) Urine Marijuana (THC) (NEGATIVE) Influenza Type A Ag (NEGATIVE) Influenza Type B Ag (NEGATIVE) RSV (PCR) (Negative) SARS-CoV-2 (PCR) (NEGATIVE) - Progress Progress: improved, re-examined Progress Note: 08/25/21 17:43 Medical decision making: This patient has symptoms that are similar to 2 days ago. However, they have significantly improved. He is no longer vomiting but had nausea. She has some abdominal pain but it is improved. She is mildly dehydrated today as compared to moderately dehydrated 2 days ago. I did discuss with Dr. Chandan Woodard, the patient's primary care doctor. I have given this patient 2 L of normal saline solution. She is feeling better. Dr. Chandan Woodard wants to see her in her office tomorrow at 1 PM. Discussed with : Charli - Departure Departure Disposition: Home Clinical Impression: Mild dehydration, Abdominal pain Condition: Stable Critical Care Time: No Referrals: EILEEN STANTON [Primary Care Provider] - Follow up/PCP as directed Additional Instructions: Drink plenty of clear liquids. Do not advance your diet past clear liquids until you are tolerating this very well. Continue your medication as prescribed. Follow-up with Dr. Chandan Woodard at 1 PM at her office on 08/26.
[2021-08-25] MEDS ORDERED: Zofran 4 MG/2 ML VIAL ONE (13:32)
[2021-08-25] MEDS ORDERED: Sodium Chloride 0.9% 1000 ML 1,000 ML ONE ×2 (13:33→16:33)
[2021-08-25 14:02] LABS: Absolute Neutrophil Ct (ANC) 10.93 x10^3/uL (1.4-6.9); Basophil (Absolute #) 0.04 x10^3/uL (0-0.4); Eosinophil % 0.1 % (0.00-5.0); Eosinophil (Absolute #) 0.01 x10^3/uL (0-0.5); Hematocrit 40.2 % (35-47); Hemoglobin 13.5 g/dL (12.0-16.0); Lymphocyte (Absolute #) 1.92 x10^3/uL (1.0-4.6); Mean Cell Volume 94.6 fL (78-100); Mean Corpuscular Hemoglobin 31.8 pg (26-32); Mean Corpuscular Hgb Concent. 33.6 g/dL (32-36); Mean Platelet Volume 10.5 fL (7.5-11.0); Monocyte (Absolute #) 0.79 x10^3/uL (0.0-1.3); Monocytes % 5.7 % (0.0-12.0); Neutrophil % 79.4 % (36.0-66.0); Platelet Count 222 x10^3/uL (150-450); Red Blood Count 4.25 x10^6/uL (4.1-5.4); Red Cell Distribution Width 12.2 % (11.5-14.0); White Blood Count 13.8 x10^3/uL (4.0-10.5)
[2021-08-25 14:21] LABS: ALBUMIN 3.9 g/dL (3.5-5.0); ALKALINE PHOSPHATASE 75 U/L (38-126); AMYLASE 71 U/L (30-110); ANION GAP 12.8 MEQ/L (5-15); BLOOD UREA NITROGEN 15 mg/dL (7-17); CHLORIDE 103 mmol/L (98-107); Calcium 8.8 mg/dL (8.4-10.2); Carbon Dioxide 28 mmol/L (22-30); Creatinine 1 0.71 mg/dL (0.52-1.04); EST GLOMERULAR FILTRATION RATE > 60.0 ML/MIN; Glucose 122 mg/dL (74-106); LIPASE 40 U/L (23-300); SGOT/AST 29 U/L (14-36); SGPT/ALT 15 U/L (0-35); SODIUM 139 mmol/L (137-145)
[2021-08-25 14:36] LABS: INFLUENZA A NEGATIVE (NEGATIVE); INFLUENZA B NEGATIVE (NEGATIVE); RESPIRATORY SYNCTIAL VIRUS NEGATIVE (Negative); SARS-CoV-2 Xpert Express NEGATIVE (NEGATIVE)
[2021-08-25 15:20] LABS: Bacteria RARE /HPF (NEGATIVE); Epithelial Cells RARE /HPF (FEW); Mucus SLIGHT /HPF (NEGATIVE); WBC 0-2 /HPF (0-5)
[2021-08-25 15:37] LABS: Appearance CLEAR (CLEAR); Bilirubin SMALL (NEGATIVE); Glucose NEGATIVE (NEGATIVE); Ketones SMALL-15 (NEGATIVE); Nitrite NEGATIVE (NEGATIVE); Protein,Urine Dip TRACE (Negative); RBC NEGATIVE Ery/ul (0-5); Specific Gravity 1.025 (1.005-1.025); Urobilinogen 4 mg/dL (0-1)
[2021-08-25 15:38] LABS: Urine Cultured Indicated? NO
[2021-08-25 15:40] LABS: Dipstick done @ ? MAIN LAB
[2021-08-25 16:05] LABS: Amphetamine,Urine NEGATIVE (NEGATIVE); Barbiturate,Urine NEGATIVE (NEGATIVE); Benzodiazepine,Urine NEGATIVE (NEGATIVE); Cocaine,Urine NEGATIVE (NEGATIVE); Methadone,Urine NEGATIVE (NEGATIVE); Opiate,Urine NEGATIVE (NEGATIVE); PCP,Urine NEGATIVE (NEGATIVE); THC,Urine POSITIVE (NEGATIVE)
[2021-08-25] MEDS ORDERED: Hydromorphone 1 mg/ml Injection IV ONE (17:39)
[2021-08-25] MEDS ORDERED: Hydromorphone 1 mg/ml Injection ONE (17:42)
[2021-08-25 17:47] VITALS: BP 156/80; PULSE 76
[2021-08-25 18:09] VITALS: O2SAT 98
== END 2021-08-25 18:09 | disposition home or self-care (01) ==
LOC: ED 13:13
DX: E86.0 Dehydration (principal); R10.84 Generalized abdominal pain; R11.0 Nausea; E10.9 Type 1 diabetes mellitus without complications; Z72.0 Tobacco use
CPT/HCPCS: 0241U; 36000; 36415; 76942; 80053; 80307; 81015; 82150; 83605; 83690; 85025; 96360; 96365; 96374; 96375; 99284; J1170; J2405

== ENCOUNTER 2021-09-14 10:46 | Emergency (ER) | payer OTHER ==
--- NOTE | 2021-09-14 11:07 | ERPHSYRPT ---
- History of Present Illness Time Seen by Provider: 09/14/21 11:00 Historian: patient Exam Limitations: no limitations Patient Subjective Stated Complaint: pt here for epigastric pain sudden onset this morning about an hour ago, with vomiting Triage Nursing Assessment: pt alert, walked in holding abd, skin w/d/p. placed mask on, no edema noted Physician History: This is an obese 40-year-old white female patient of Dr. Chandan Woodard who has recurrent epigastric abdominal pain that was sudden in onset that occurred approximately 1 hour prior to arrival this morning. She had associated 3 episodes of vomiting. Patient has a history of migraine headaches and depression. She is a every day smoker of cigarettes. Patient has had a C- section and bilateral tubal ligation. She is also diabetic. Patient was seen i this emergency room on 627 and 08/25/2021 for the same issue. In the interim, the patient states that he was seen by Dr. Chandan Woodard in the clinic and there was a change in some medications. Patient has not had diarrhea. She is not short of breath. Her pain is more epigastric than chest pain. The epigastric pain does radiate into her back. Timing/Duration: today Quality: aching, pressure Abdominal Pain Onset Location: epigastric Pain Radiation: back Severity of Pain-Max: moderate Severity of Pain-Current: mild Modifying Factors: Improves With: vomiting (X3 episodes) Associated Symptoms: nausea, shortness of breath, vomiting, No chest pain, No fever/chills Previous symptoms: same symptoms as today, recently seen Allergies/Adverse Reactions: No Known Drug Allergies Allergy (Verified 09/14/21 10:52) Hx Tetanus, Diphtheria Vaccination/Date Given: No Hx Influenza Vaccination/Date Given: Yes Hx Pneumococcal Vaccination/Date Given: No Immunizations Up to Date: Yes Travel Risk - International Travel Have you traveled outside of the country in past 3 weeks: No - Coronavirus Screening Are you exhibiting any of the following symptoms?: No Close contact with a COVID-19 positive Pt in past 14-21 Days: No - Vaccine Status Have you recieved a Covid-19 vaccination: Yes 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[employer] - Review of Systems Constitutional: No Symptoms Eyes: No Symptoms Ears, Nose, & Throat: No Symptoms Respiratory: No Symptoms Cardiac: No Symptoms Abdominal/Gastrointestinal: Abdominal Pain (The gastric), Nausea, Vomiting, No Diarrhea, No Constipation Genitourinary Symptoms: No Symptoms Musculoskeletal: No Symptoms, Injury Neurological: No Symptoms Psychological: No Symptoms Endocrine: No Symptoms Hematologic/Lymphatic: No Symptoms Immunological/Allergic: No Symptoms All Other Systems: Reviewed and Negative - Past Medical History Pertinent Past Medical History: Yes Neurological History: Migraines ENT History: No Pertinent History Cardiac History: No Pertinent History Respiratory History: No Pertinent History Endocrine Medical History: Diabetes Type I Musculoskeletal History: No Pertinent History GI Medical History: No Pertinent History History: No Pertinent History Psycho-Social History: Depression - Past Surgical History Past Surgical History: Yes Female Surgical History: Section, Tubal Ligation Other Surgical History: 3 HAND SURGERY, BACK SURGERY, X 2 - Social History Smoking Status: Current every day smoker How long have you smoked: years Exposure to second hand smoke: Yes Drug Use: none Patient Lives Alone: No - Female History Hx Last Menstrual Period: august Hx Now: No - Nursing Vital Signs Nursing Vital Signs: Initial Vital Signs Temperature 97.1 F 09/14/21 10:48 Pulse Rate 80 09/14/21 10:48 Respiratory Rate 18 09/14/21 10:48 Blood Pressure 169/89 09/14/21 10:48 O2 Sat by Pulse Oximetry 99 09/14/21 10:48 Pain Scale Pain Intensity 7 - Physical Exam General Appearance: no apparent distress, alert, anxiety, obese Eye Exam: PERRL/EOMI, eyes nml inspection Ears, Nose, Throat Exam: normal ENT inspection, moist mucous membranes Neck Exam: normal inspection, non-tender, supple, full range of motion Respiratory Exam: normal breath sounds, lungs clear, airway intact, No chest tenderness, No respiratory distress Cardiovascular Exam: regular rate/rhythm, normal heart sounds, normal peripheral pulses Gastrointestinal/Abdomen Exam: soft, normal bowel sounds, tenderness (Epigastrium), guarding (Mild with palpation in the epigastrium), No rebound Pelvic Exam: not done Rectal Exam: not done Back Exam: normal inspection, normal range of motion, No CVA tenderness, No vertebral tenderness Extremity Exam: normal inspection, normal range of motion, pelvis stable Neurologic Exam: alert, oriented x 3, cooperative, group president II-XII nml as tested, normal mood/affect, nml cerebellar function, nml station & gait, sensation nml Skin Exam: normal color, warm, dry Lymphatic Exam: No adenopathy SpO2 Interpretation: normal SpO2: 99 O2 Delivery: Room Air - Course Nursing assessment & vital signs reviewed: Yes EKG Interpreted by Me: RATE Ordered Tests: Active Orders 24 hr Category Date Time Status EKG-ER Only STAT Care 09/14/21 12:43 Active IV Insertion STAT Care 09/14/21 11:19 Active ABDOMEN AND PELVIS W/0 CONTRAS [CT] Stat Exams 09/14/21 11:19 Completed AMYLASE Stat Lab 09/14/21 12:30 Completed CBC W DIFF Stat Lab 09/14/21 12:30 Completed CMP Stat Lab 09/14/21 12:30 Completed LIPASE Stat Lab 09/14/21 12:30 Completed Lactic Acid Stat Lab 09/14/21 11:19 Completed TROPONIN Q3H Lab 09/14/21 12:30 Completed TROPONIN Q3H Lab 09/14/21 14:30 Ordered TROPONIN Q3H Lab 09/14/21 17:30 Ordered TROPONIN Q3H Lab 09/14/21 20:30 Ordered TROPONIN Q3H Lab 09/14/21 23:30 Ordered UA W/RFX CULTURE Stat Lab 09/14/21 13:14 Completed Medication Summary Discontinued Medications Generic Name Dose Route Start Last Admin Trade Name Freq PRN Reason Stop Dose Admin Hydromorphone HCl 0.5 mg 09/14/21 13:14 09/14/21 13:24 Hydromorphone 1 Mg/1ml Inj 1 Mg/Ml Syringe IV 09/14/21 13:15 0.5 mg STAT ONE Administration Hydromorphone HCl Confirm 09/14/21 13:21 Hydromorphone 1 Mg/1ml Inj 1 Mg/Ml Syringe Administered 09/14/21 13:22 Dose 1 mg .ROUTE .STK-MED ONE Sodium Chloride 1,000 mls @ 999 mls/hr 09/14/21 11:19 09/14/21 12:34 Sodium Chloride 0.9% 1000 Ml IV 09/14/21 12:19 Infused .Q1H1M STA Infusion Sodium Chloride Confirm 09/14/21 11:30 Sodium Chloride 0.9% 1000 Ml Administered 09/14/21 11:31 Dose 1,000 mls @ ud .ROUTE .STK-MED ONE Ondansetron HCl 4 mg 09/14/21 11:19 09/14/21 11:33 Ondansetron Hcl 4 Mg/2 Ml Vial IV 09/14/21 11:20 4 mg STAT ONE Administration Ondansetron HCl Confirm 09/14/21 11:30 Ondansetron Hcl 4 Mg/2 Ml Vial Administered 09/14/21 11:31 Dose 4 mg .ROUTE .STK-MED ONE Pantoprazole Sodium 40 mg 09/14/21 11:19 09/14/21 11:33 Pantoprazole 40 Mg Vial IV 09/14/21 11:20 40 mg STAT ONE Administration Pantoprazole Sodium Confirm 09/14/21 11:30 Pantoprazole 40 Mg Vial Administered 09/14/21 11:31 Dose 40 mg IV .STK-MED ONE Lab/Rad Data: Laboratory Result Diagrams 09/14/21 12:30 09/14/21 12:30 Laboratory Results 09/14/21 09/14/21 09/14/21 Range/Units 13:14 12:30 12:30 WBC (4.0-10.5) x10^3/uL RBC (4.1-5.4) x10^6/uL Hgb (12.0-16.0) g/dL Hct (35-47) % MCV (78-100) fL MCH (26-32) pg MCHC (32-36) g/dL RDW (11.5-14.0) % Plt Count (150-450) x10^3/uL MPV (7.5-11.0) fL Gran % (36.0-66.0) % Immature Gran % (Auto) (0.00-0.4) % Nucleat RBC Rel Count (0.00-0.1) % Eos # (Auto) (0-0.5) x10^3/uL Immature Gran # (Auto) (0.00-0.03) x10^3u/L Absolute Lymphs (auto) (1.0-4.6) x10^3/uL Absolute Monos (auto) (0.0-1.3) x10^3/uL Absolute Nucleated RBC (0.00-0.01) x10^3u/L Lymphocytes % (24.0-44.0) % Monocytes % (0.0-12.0) % Eosinophils % (0.00-5.0) % Basophils % (0.0-0.4) % Absolute Granulocytes (1.4-6.9) x10^3/uL Basophils # (0-0.4) x10^3/uL Sodium 139 (137-145) mmol/L Potassium 4.6 (3.5-5.1) mmol/L Chloride 108 H (98-107) mmol/L Carbon Dioxide 26 (22-30) mmol/L Anion Gap 9.6 (5-15) MEQ/L BUN 3 L (7-17) mg/dL Creatinine 0.69 (0.52-1.04) mg/dL Estimated GFR > 60.0 ML/MIN Glucose 66 L (74-106) mg/dL Lactic Acid (0.4-2.0) Calcium 9.1 (8.4-10.2) mg/dL Total Bilirubin 0.50 (0.2-1.3) mg/dL AST 26 (14-36) U/L ALT 13 (0-35) U/L Alkaline Phosphatase 74 (38-126) U/L Troponin I < 0.012 (0.000-0.034) ng/mL Serum Total Protein 6.2 L (6.3-8.2) g/dL Albumin 3.3 L (3.5-5.0) g/dL Amylase (30-110) U/L Lipase (23-300) U/L Urinalys Dipstick Clnc MAIN LAB Urine Color YELLOW (YELLOW) Urine Appearance CLEAR (CLEAR) Urine pH 7.5 (5-6) Ur Specific [place] 1.015 (1.005-1.025) POC Urine Protein Conf NEGATIVE (Negative) Urine Ketones NEGATIVE (NEGATIVE) Urine Nitrite NEGATIVE (NEGATIVE) Urine Bilirubin NEGATIVE (NEGATIVE) Urine Urobilinogen 0.2 (0-1) mg/dL Urine Leukocytes NEGATIVE (NEGATIVE) Urine WBC (Auto) NONE (0-5) /HPF Urine RBC (Auto) NONE (0-2) /HPF U Epithel Cells (Auto) RARE (FEW) /HPF Urine Bacteria (Auto) NONE (NEGATIVE) /HPF Urine RBC NEGATIVE (0-5) Ghassan/ul Urine Mucus (Auto) SLIGHT (NEGATIVE) /HPF Ur Culture Indicated? NO Urine Glucose NEGATIVE (NEGATIVE) mg/dL 09/14/21 09/14/21 09/14/21 Range/Units 12:30 12:30 11:19 WBC 10.1 (4.0-10.5) x10^3/uL RBC 4.17 (4.1-5.4) x10^6/uL Hgb 13.2 (12.0-16.0) g/dL Hct 40.3 (35-47) % MCV 96.6 (78-100) fL MCH 31.7 (26-32) pg MCHC 32.8 (32-36) g/dL RDW 12.3 (11.5-14.0) % Plt Count 270 (150-450) x10^3/uL MPV 10.7 (7.5-11.0) fL Gran % 85.4 H (36.0-66.0) % Immature Gran % (Auto) 0.3 (0.00-0.4) % Nucleat RBC Rel Count 0.0 (0.00-0.1) % Eos # (Auto) 0.01 (0-0.5) x10^3/uL Immature Gran # (Auto) 0.03 (0.00-0.03) x10^3u/L Absolute Lymphs (auto) 0.99 L (1.0-4.6) x10^3/uL Absolute Monos (auto) 0.41 (0.0-1.3) x10^3/uL Absolute Nucleated RBC 0.00 (0.00-0.01) x10^3u/L Lymphocytes % 9.8 L (24.0-44.0) % Monocytes % 4.1 (0.0-12.0) % Eosinophils % 0.1 (0.00-5.0) % Basophils % 0.3 (0.0-0.4) % Absolute Granulocytes 8.65 H (1.4-6.9) x10^3/uL Basophils # 0.03 (0-0.4) x10^3/uL Sodium (137-145) mmol/L Potassium (3.5-5.1) mmol/L Chloride (98-107) mmol/L Carbon Dioxide (22-30) mmol/L Anion Gap (5-15) MEQ/L BUN (7-17) mg/dL Creatinine (0.52-1.04) mg/dL Estimated GFR ML/MIN Glucose (74-106) mg/dL Lactic Acid 1.1 (0.4-2.0) Calcium (8.4-10.2) mg/dL Total Bilirubin (0.2-1.3) mg/dL AST (14-36) U/L ALT (0-35) U/L Alkaline Phosphatase (38-126) U/L Troponin I (0.000-0.034) ng/mL Serum Total Protein (6.3-8.2) g/dL Albumin (3.5-5.0) g/dL Amylase 71 (30-110) U/L Lipase 28 (23-300) U/L Urinalys Dipstick Clnc Urine Color (YELLOW) Urine Appearance (CLEAR) Urine pH (5-6) Ur Specific [place] (1.005-1.025) POC Urine Protein Conf (Negative) Urine Ketones (NEGATIVE) Urine Nitrite (NEGATIVE) Urine Bilirubin (NEGATIVE) Urine Urobilinogen (0-1) mg/dL Urine Leukocytes (NEGATIVE) Urine WBC (Auto) (0-5) /HPF Urine RBC (Auto) (0-2) /HPF U Epithel Cells (Auto) (FEW) /HPF Urine Bacteria (Auto) (NEGATIVE) /HPF Urine RBC (0-5) Ghassan/ul Urine Mucus (Auto) (NEGATIVE) /HPF Ur Culture Indicated? Urine Glucose (NEGATIVE) mg/dL - Progress Progress: improved, re-examined Progress Note: 09/14/21 12:18 CAT scan of the abdomen pelvis without contrast when compared to the CAT scan that was performed on 08/23/2021, there is no significant changes. There is no acute intra-abdominal or intrapelvic findings. Counseled pt/family regarding: lab results, diagnosis, need for follow-up, rad results - Departure Departure Disposition: Home Clinical Impression: Epigastric pain, Vomiting Condition: Stable Critical Care Time: No Referrals: EILEEN STANTON [Primary Care Provider] - Follow up/PCP as directed Additional Instructions: Drink plenty of clear liquids. Call Dr. Chandan Woodard's office today to make arrangements for follow-up appointment for further evaluation and management.
[2021-09-14] MEDS ORDERED: PROTONIX 40 MG IV IV ONE ×2 (11:19→11:30)
[2021-09-14] MEDS ORDERED: Zofran 4 MG/2 ML VIAL IV ONE (11:19)
[2021-09-14] MEDS ORDERED: Sodium Chloride 0.9% 1000 ML 1,000 ML IV STA (11:19)
[2021-09-14] MEDS ORDERED: Sodium Chloride 0.9% 1000 ML 1,000 ML ONE (11:30)
[2021-09-14] MEDS ORDERED: Zofran 4 MG/2 ML VIAL ONE (11:30)
--- NOTE | 2021-09-14 12:11 | XRAY ---
Indication: Epigastric pain and vomiting. Multiple contiguous axial images obtained through the abdomen and pelvis without contrast. Comparison: August 23, 2021 Lung bases again demonstrate scattered subsegmental atelectasis/scarring. Heart not enlarged. Previous hiatal hernia not seen presumed sliding-type. Noncontrasted stomach and bowel loops are nonobstructed with normal appendix. Kidneys again demonstrates 1 right and 3 left nonobstructing punctate calculi. No free fluid/air. Remaining liver, gallbladder, pancreas, spleen, adrenal glands, kidneys, ureters, bladder, and uterus unremarkable for noncontrast exam. Stable minimal aortoiliac calcifications. Impression: Stable bibasilar subsegmental atelectasis/scarring and nonobstructing bilateral renal micro-calculi. No new/acute findings.
[2021-09-14 12:52] LABS: Absolute Neutrophil Ct (ANC) 8.65 x10^3/uL (1.4-6.9); Basophil (Absolute #) 0.03 x10^3/uL (0-0.4); Eosinophil % 0.1 % (0.00-5.0); Eosinophil (Absolute #) 0.01 x10^3/uL (0-0.5); Hematocrit 40.3 % (35-47); Hemoglobin 13.2 g/dL (12.0-16.0); Lymphocyte (Absolute #) 0.99 x10^3/uL (1.0-4.6); Lymphocytes % 9.8 % (24.0-44.0); Mean Cell Volume 96.6 fL (78-100); Mean Corpuscular Hemoglobin 31.7 pg (26-32); Mean Corpuscular Hgb Concent. 32.8 g/dL (32-36); Mean Platelet Volume 10.7 fL (7.5-11.0); Monocyte (Absolute #) 0.41 x10^3/uL (0.0-1.3); Monocytes % 4.1 % (0.0-12.0); Neutrophil % 85.4 % (36.0-66.0); Platelet Count 270 x10^3/uL (150-450); Red Blood Count 4.17 x10^6/uL (4.1-5.4); Red Cell Distribution Width 12.3 % (11.5-14.0); White Blood Count 10.1 x10^3/uL (4.0-10.5)
[2021-09-14 12:57] LABS: AMYLASE 71 U/L (30-110); LIPASE 28 U/L (23-300)
[2021-09-14 12:59] LABS: ALBUMIN 3.3 g/dL (3.5-5.0); ALKALINE PHOSPHATASE 74 U/L (38-126); ANION GAP 9.6 MEQ/L (5-15); BLOOD UREA NITROGEN 3 mg/dL (7-17); CHLORIDE 108 mmol/L (98-107); Calcium 9.1 mg/dL (8.4-10.2); Carbon Dioxide 26 mmol/L (22-30); Creatinine 1 0.69 mg/dL (0.52-1.04); EST GLOMERULAR FILTRATION RATE > 60.0 ML/MIN; Glucose 66 mg/dL (74-106); Potassium 4.6 mmol/L (3.5-5.1); SGOT/AST 26 U/L (14-36); SGPT/ALT 13 U/L (0-35); SODIUM 139 mmol/L (137-145); Total Protein 6.2 g/dL (6.3-8.2)
[2021-09-14] MEDS ORDERED: Hydromorphone 1 mg/ml Injection IV ONE (13:14)
[2021-09-14] MEDS ORDERED: Hydromorphone 1 mg/ml Injection ONE (13:21)
[2021-09-14 13:51] LABS: Epithelial Cells RARE /HPF (FEW)
[2021-09-14 13:54] LABS: Appearance CLEAR (CLEAR); Bilirubin NEGATIVE (NEGATIVE); Glucose NEGATIVE (NEGATIVE); Ketones NEGATIVE (NEGATIVE); Mucus SLIGHT /HPF (NEGATIVE); Nitrite NEGATIVE (NEGATIVE); Ph 7.5 (5-6); Protein,Urine Dip NEGATIVE (Negative); RBC NEGATIVE Ery/ul (0-5); Specific Gravity 1.015 (1.005-1.025); Urine Cultured Indicated? NO; Urobilinogen 0.2 mg/dL (0-1)
[2021-09-14 13:56] LABS: Dipstick done @ ? MAIN LAB
[2021-09-14 14:27] VITALS: BP 140/74; PULSE 76; O2SAT 97
== END 2021-09-14 14:31 | disposition home or self-care (01) ==
LOC: ED 10:46
DX: R10.13 Epigastric pain (principal); R11.2 Nausea with vomiting, unspecified; E10.9 Type 1 diabetes mellitus without complications; Z72.0 Tobacco use
CPT/HCPCS: 36000; 36415; 74176; 80053; 81015; 82150; 83605; 83690; 84484; 85025; 93005; 96374; 96375; 99284; J1170; J2405

== ENCOUNTER 2021-11-10 05:45 | Day surgery (SDC) | payer OTHER ==
[2021-11-10] MEDS ORDERED: Lactated Ringers 1,000 ML IV SCH (06:30)
[2021-11-10 06:32] VITALS: BP 139/82; PULSE 76; O2SAT 98
== END 2021-11-10 07:30 | disposition home or self-care (01) ==
LOC: SDC 05:45
PROVIDERS: ATTEND Family Medicine
DX: Z53.8 Procedure and treatment not carried out for other reasons (principal); R73.9 Hyperglycemia, unspecified
CPT/HCPCS: 81025; 82947

== ENCOUNTER 2022-09-11 07:50 | Emergency (ER) | payer OTHER ==
[2022-09-11] MEDS ORDERED: MORPHINE SULFATE 4 MG INJ ONE ×2 (08:33→10:02)
[2022-09-11] MEDS ORDERED: Zofran 4 MG/2 ML VIAL ONE (08:33)
[2022-09-11] MEDS ORDERED: MORPHINE SULFATE 4 MG INJ IV ONE ×2 (08:47→09:42)
[2022-09-11] MEDS ORDERED: Sodium Chloride 0.9% 1000 ML 1,000 ML IV STA (08:47)
[2022-09-11] MEDS ORDERED: Zofran 4 MG/2 ML VIAL IV ONE (08:47)
[2022-09-11 08:53] LABS: Absolute Neutrophil Ct (ANC) 9.75 x10^3/uL (1.4-6.9); BASOPHIL % 0.3 % (0.0-0.4); Basophil (Absolute #) 0.03 x10^3/uL (0-0.4); Eosinophil % 0.4 % (0.00-5.0); Eosinophil (Absolute #) 0.05 x10^3/uL (0-0.5); Hematocrit 46.6 % (35-47); Hemoglobin 15.6 g/dL (12.0-16.0); IMMATURE GRAN # 0.04 x10^3u/L (0.00-0.03); IMMATURE GRAN % 0.3 % (0.00-0.4); Lymphocyte (Absolute #) 0.97 x10^3/uL (1.0-4.6); Lymphocytes % 8.3 % (24.0-44.0); Mean Corpuscular Hemoglobin 31.5 pg (26-32); Mean Corpuscular Hgb Concent. 33.5 g/dL (32-36); Monocyte (Absolute #) 0.81 x10^3/uL (0.0-1.3); Neutrophil % 83.7 % (36.0-66.0); Platelet Count 248 x10^3/uL (150-450); Red Blood Count 4.96 x10^6/uL (4.1-5.4); Red Cell Distribution Width 12.1 % (11.5-14.0); White Blood Count 11.7 x10^3/uL (4.0-10.5)
[2022-09-11 09:00] LABS: ALBUMIN 4.1 g/dL (3.5-5.0); ALKALINE PHOSPHATASE 93 U/L (38-126); ANION GAP 14.8 MEQ/L (5-15); BLOOD UREA NITROGEN 24 mg/dL (7-17); CHLORIDE 104 mmol/L (98-107); Carbon Dioxide 26 mmol/L (22-30); Creatinine 1 0.76 mg/dL (0.52-1.04); EST GLOMERULAR FILTRATION RATE > 60.0 ML/MIN; Glucose 105 mg/dL (74-106); LIPASE 22 U/L (23-300); Potassium 3.8 mmol/L (3.5-5.1); SGOT/AST 24 U/L (14-36); SGPT/ALT 20 U/L (0-35); SODIUM 141 mmol/L (137-145); Total Protein 7.3 g/dL (6.3-8.2)
[2022-09-11 09:04] LABS: HCG URINE TEST NEGATIVE (NEGATIVE)
[2022-09-11 09:05] LABS: Appearance Cloudy (Clear); Bacteria None Seen /HPF (None Seen); Bilirubin Negative (Negative); Blood Negative (Negative); Epithelial Cells Moderate /HPF (None Seen); Glucose, Urine Negative (Negative); Hyaline Casts NONE SEEN /LPF (0-2); Ketones Negative (Negative); Leukocyte Esterase Trace (Negative); Nitrite Negative (Negative); Ph 8.5 (4.6-8.0); Protein,Urine Dip 30 (Negative); RBC 0-2 /HPF (0-5); Specific Gravity 1.025 (1.005-1.030)
[2022-09-11 09:20] LABS: ADD URINE CULTURE? NO (NO)
[2022-09-11] MEDS ORDERED: Reglan 10 MG/2 ML IV ONE (09:43)
--- NOTE | 2022-09-11 09:46 | ERPHSYRPT ---
- History of Present Illness Time Seen by Provider: 09/11/22 08:42 Historian: patient Exam Limitations: no limitations Patient Subjective Stated Complaint: Abdominal pain/vomiting Triage Nursing Assessment: Patient ambulated back to ED and transferred self to bed. Patient A+O X 3. Patient's skin flushed, warm and dry. Patient crying in pain. Patient states she woke up at 0230 with right lower abdominal pain, N/V and diarrhea. Patient complains of pain to right lower abdomen 7/10. Abdomen soft and round with BS X 4. Physician History: 41 years old female with history of type 1 diabetes mellitus, hypertension, hyperlipidemia presented in the ER with chief complaint of right-sided abdominal pain waking her up from sleep around 230 this morning with multiple episodes of nonprojectile, nonbilious vomiting without hematemesis. Moderate to severe sharp nonradiating, aggravated with palpation and ambulation and prior to arrival started to have loose stool as well. No fever or chills reported. Denies any sick contact. Blood sugar was 113 prior to arrival. Timing/Duration: today, sudden, worse Activities at Onset: sleep Quality: sharpness Abdominal Pain Onset Location: RUQ, RLQ Severity of Pain-Max: severe Severity of Pain-Current: severe Modifying Factors: Worsens With: movement, palpation Associated Symptoms: diarrhea, nausea, vomiting Allergies/Adverse Reactions: No Known Drug Allergies Allergy (Verified 09/11/22 08:07) Home Medications: Insulin Lispro [Admelog] 1 unit SQ UD 09/21/21 [History] Lisinopril 5 mg [Zestril 5 MG] 2.5 mg PO DAILY 09/21/21 [History] Nortriptyline HCl [Pamelor] 10 mg PO DAILY 09/21/21 [History] Simvastatin 20Mg [Zocor 20Mg] 40 mg PO DAILY 09/21/21 [History] Tizanidine HCl 4 mg [Zanaflex 4 MG] 2 tab PO DAILY 09/21/21 [History] Hx Tetanus, Diphtheria Vaccination/Date Given: No Hx Influenza Vaccination/Date Given: Yes Hx Pneumococcal Vaccination/Date Given: No Travel Risk - International Travel Have you traveled outside of the country in past 3 weeks: No - Coronavirus Screening Are you exhibiting any of the following symptoms?: No Close contact with a COVID-19 positive Pt in past 14-21 Days: No - Vaccine Status Have you recieved a Covid-19 vaccination: Yes [employer]obile [employer]: [facility] - Review of Systems Constitutional: Night Sweats Eyes: No Symptoms Ears, Nose, & Throat: No Symptoms Respiratory: No Symptoms Cardiac: No Symptoms Abdominal/Gastrointestinal: Abdominal Pain, Nausea, Vomiting, Diarrhea Genitourinary Symptoms: No Symptoms Musculoskeletal: No Symptoms Skin: No Symptoms Neurological: No Symptoms Psychological: No Symptoms Hematologic/Lymphatic: No Symptoms Immunological/Allergic: No Symptoms - Past Medical History Pertinent Past Medical History: Yes Neurological History: Migraines, Stroke ENT History: No Pertinent History Cardiac History: Other Respiratory History: No Pertinent History Endocrine Medical History: Diabetes Type I Musculoskeletal History: No Pertinent History GI Medical History: No Pertinent History History: No Pertinent History Psycho-Social History: Depression Female Reproductive Disorders: No Pertinent History Other Medical History: stroke/tia don't know when ct showed stroke on 08/23/2021. heart murmur - Past Surgical History Past Surgical History: Yes Neuro Surgical History: No Pertinent History Cardiac: No Pertinent History Respiratory: No Pertinent History Gastrointestinal: No Pertinent History Genitourinary: No Pertinent History Musculoskeletal: No Pertinent History Female Surgical History: Section, Tubal Ligation Other Surgical History: 3 HAND SURGERY, cyst removed from back. X 2 - Social History Smoking Status: Never smoker How long have you smoked: years Exposure to second hand smoke: No Drug Use: none Patient Lives Alone: No - Female History Hx Last Menstrual Period: last week Hx Now: (unkn) - Nursing Vital Signs Nursing Vital Signs: Initial Vital Signs Temperature 97.0 F 09/11/22 08:19 Pulse Rate 96 H 09/11/22 08:19 Respiratory Rate 20 09/11/22 08:19 Blood Pressure 120/69 09/11/22 08:19 O2 Sat by Pulse Oximetry 96 09/11/22 08:19 Pain Scale Pain Intensity 8 - Physical Exam General Appearance: no apparent distress, alert Eye Exam: PERRL/EOMI Ears, Nose, Throat Exam: normal ENT inspection, TMs normal, pharynx normal, moist mucous membranes Neck Exam: normal inspection, non-tender, supple, full range of motion Respiratory Exam: normal breath sounds, lungs clear Cardiovascular Exam: regular rate/rhythm, normal heart sounds Gastrointestinal/Abdomen Exam: soft, normal bowel sounds, tenderness (Right upper and right lower quadrant with some guarding but no rebound tenderness.) Extremity Exam: normal inspection, normal range of motion Neurologic Exam: alert, oriented x 3, cooperative Skin Exam: normal color SpO2 Interpretation: normal SpO2: 97 O2 Delivery: Room Air Ordered Tests: Active Orders 24 hr Category Date Time Status IV Insertion STAT Care 09/11/22 08:47 Active NPO (ED) STAT Care 09/11/22 08:47 Active ABDOMEN AND PELVIS W/0 CONTRAS [CT] Stat Exams 09/11/22 08:48 Completed CBC W DIFF Stat Lab 09/11/22 08:37 Completed CMP Stat Lab 09/11/22 08:37 Completed HCG QUALITATIVE, URINE Stat Lab 09/11/22 08:51 Completed LIPASE Stat Lab 09/11/22 08:37 Completed UA W/RFX UR CULTURE Stat Lab 09/11/22 08:51 Completed Medication Summary Discontinued Medications Generic Name Dose Route Start Last Admin Trade Name Freq PRN Reason Stop Dose Admin Sodium Chloride 1,000 mls @ 999 mls/hr 09/11/22 08:47 09/11/22 11:23 Sodium Chloride 0.9% 1000 Ml IV 09/11/22 09:47 Infused .Q1H1M STA Infusion Sodium Chloride Confirm 09/11/22 10:02 Sodium Chloride 0.9% 1000 Ml Administered 09/11/22 10:03 Dose 1,000 mls @ ud .ROUTE .STK-MED ONE Metoclopramide HCl 10 mg 09/11/22 09:43 09/11/22 10:08 Metoclopramide Hcl 10 Mg/2 Ml Vial IV 09/11/22 09:44 10 mg STAT ONE Administration Metoclopramide HCl Confirm 09/11/22 10:02 Metoclopramide Hcl 10 Mg/2 Ml Vial Administered 09/11/22 10:03 Dose 10 mg .ROUTE .STK-MED ONE Morphine Sulfate Confirm 09/11/22 08:33 Morphine Sulfate 4 Mg/Ml Injection Administered 09/11/22 08:34 Dose 4 mg .ROUTE .STK-MED ONE Morphine Sulfate 4 mg 09/11/22 08:47 09/11/22 08:52 Morphine Sulfate 4 Mg/Ml Injection IV 09/11/22 08:48 4 mg STAT ONE Administration Morphine Sulfate 4 mg 09/11/22 09:42 09/11/22 10:08 Morphine Sulfate 4 Mg/Ml Injection IV 09/11/22 09:43 4 mg STAT ONE Administration Morphine Sulfate Confirm 09/11/22 10:02 Morphine Sulfate 4 Mg/Ml Injection Administered 09/11/22 10:03 Dose 4 mg .ROUTE .STK-MED ONE Ondansetron HCl Confirm 09/11/22 08:33 Ondansetron Hcl 4 Mg/2 Ml Vial Administered 09/11/22 08:34 Dose 4 mg .ROUTE .STK-MED ONE Ondansetron HCl 4 mg 09/11/22 08:47 09/11/22 08:51 Ondansetron Hcl 4 Mg/2 Ml Vial IV 09/11/22 08:48 4 mg STAT ONE Administration Lab/Rad Data: Laboratory Result Diagrams 09/11/22 08:37 09/11/22 08:37 Laboratory Results 09/11/22 09/11/22 09/11/22 Range/Units 08:51 08:51 08:37 WBC (4.0-10.5) x10^3/uL RBC (4.1-5.4) x10^6/uL Hgb (12.0-16.0) g/dL Hct (35-47) % MCV (78-100) fL MCH (26-32) pg MCHC (32-36) g/dL RDW (11.5-14.0) % Plt Count (150-450) x10^3/uL MPV (7.5-11.0) fL Gran % (36.0-66.0) % Immature Gran % (Auto) (0.00-0.4) % Nucleat RBC Rel Count (0.00-0.1) % Eos # (Auto) (0-0.5) x10^3/uL Immature Gran # (Auto) (0.00-0.03) x10^3u/L Absolute Lymphs (auto) (1.0-4.6) x10^3/uL Absolute Monos (auto) (0.0-1.3) x10^3/uL Absolute Nucleated RBC (0.00-0.01) x10^3u/L Lymphocytes % (24.0-44.0) % Monocytes % (0.0-12.0) % Eosinophils % (0.00-5.0) % Basophils % (0.0-0.4) % Absolute Granulocytes (1.4-6.9) x10^3/uL Basophils # (0-0.4) x10^3/uL Sodium 141 (137-145) mmol/L Potassium 3.8 (3.5-5.1) mmol/L Chloride 104 (98-107) mmol/L Carbon Dioxide 26 (22-30) mmol/L Anion Gap 14.8 (5-15) MEQ/L BUN 24 H (7-17) mg/dL Creatinine 0.76 (0.52-1.04) mg/dL Estimated GFR > 60.0 ML/MIN Glucose 105 (74-106) mg/dL Calcium 9.0 (8.4-10.2) mg/dL Total Bilirubin 1.00 (0.2-1.3) mg/dL AST 24 (14-36) U/L ALT 20 (0-35) U/L Alkaline Phosphatase 93 (38-126) U/L Serum Total Protein 7.3 (6.3-8.2) g/dL Albumin 4.1 (3.5-5.0) g/dL Lipase 22 L (23-300) U/L Urine Color Yellow (Yellow) Urine Appearance Cloudy A (Clear) Urine pH 8.5 A (4.6-8.0) Ur Specific Walters 1.025 (1.005-1.030) Urine Protein 30 (Negative) Urine Glucose (UA) Negative (Negative) mg/dL Urine Ketones Negative (Negative) Urine Blood Negative (Negative) Urine Nitrite Negative (Negative) Urine Bilirubin Negative (Negative) Urine Urobilinogen 1.0 A (0.2) mg/dL Ur Leukocyte Esterase Trace A (Negative) U Hyaline Cast (Auto) NONE SEEN (0-2) /LPF Urine Microscopic RBC 0-2 (0-5) /HPF Urine Microscopic WBC 3-5 (0-5) /HPF Ur Epithelial Cells Moderate A (None Seen) /HPF Urine Bacteria None Seen (None Seen) /HPF Urine Culture Reflexed NO (NO) Urine HCG, Qual NEGATIVE (NEGATIVE) 09/11/22 Range/Units 08:37 WBC 11.7 H (4.0-10.5) x10^3/uL RBC 4.96 (4.1-5.4) x10^6/uL Hgb 15.6 (12.0-16.0) g/dL Hct 46.6 (35-47) % MCV 94.0 (78-100) fL MCH 31.5 (26-32) pg MCHC 33.5 (32-36) g/dL RDW 12.1 (11.5-14.0) % Plt Count 248 (150-450) x10^3/uL MPV 10.0 (7.5-11.0) fL Gran % 83.7 H (36.0-66.0) % Immature Gran % (Auto) 0.3 (0.00-0.4) % Nucleat RBC Rel Count 0.0 (0.00-0.1) % Eos # (Auto) 0.05 (0-0.5) x10^3/uL Immature Gran # (Auto) 0.04 H (0.00-0.03) x10^3u/L Absolute Lymphs (auto) 0.97 L (1.0-4.6) x10^3/uL Absolute Monos (auto) 0.81 (0.0-1.3) x10^3/uL Absolute Nucleated RBC 0.00 (0.00-0.01) x10^3u/L Lymphocytes % 8.3 L (24.0-44.0) % Monocytes % 7.0 (0.0-12.0) % Eosinophils % 0.4 (0.00-5.0) % Basophils % 0.3 (0.0-0.4) % Absolute Granulocytes 9.75 H (1.4-6.9) x10^3/uL Basophils # 0.03 (0-0.4) x10^3/uL Sodium (137-145) mmol/L Potassium (3.5-5.1) mmol/L Chloride (98-107) mmol/L Carbon Dioxide (22-30) mmol/L Anion Gap (5-15) MEQ/L BUN (7-17) mg/dL Creatinine (0.52-1.04) mg/dL Estimated GFR ML/MIN Glucose (74-106) mg/dL Calcium (8.4-10.2) mg/dL Total Bilirubin (0.2-1.3) mg/dL AST (14-36) U/L ALT (0-35) U/L Alkaline Phosphatase (38-126) U/L Serum Total Protein (6.3-8.2) g/dL Albumin (3.5-5.0) g/dL Lipase (23-300) U/L Urine Color (Yellow) Urine Appearance (Clear) Urine pH (4.6-8.0) Ur Specific Walters (1.005-1.030) Urine Protein (Negative) Urine Glucose (UA) (Negative) mg/dL Urine Ketones (Negative) Urine Blood (Negative) Urine Nitrite (Negative) Urine Bilirubin (Negative) Urine Urobilinogen (0.2) mg/dL Ur Leukocyte Esterase (Negative) U Hyaline Cast (Auto) (0-2) /LPF Urine Microscopic RBC (0-5) /HPF Urine Microscopic WBC (0-5) /HPF Ur Epithelial Cells (None Seen) /HPF Urine Bacteria (None Seen) /HPF Urine Culture Reflexed (NO) Urine HCG, Qual (NEGATIVE) - Progress Progress: improved Progress Note: 09/11/22 09:45 41 years old female with history of type 1 diabetes mellitus, hypertension, hyperlipidemia presented in the ER with chief complaint of right-sided abdominal pain waking her up from sleep around 230 this morning with multiple episodes of nonprojectile, nonbilious vomiting without hematemesis. Moderate to severe sharp nonradiating, aggravated with palpation and ambulation and prior to arrival started to have loose stool as well. No fever or chills reported. Denies any sick contact. Blood sugar was 113 prior to arrival. She is given symptomatic treatment along with fluids, feeling better on reevaluation. Pain is not completely resolved, will give another dose of morphine and Reglan. Work-up showed white count of 11, fairly unremarkable chemistries, normal lipase and liver enzymes. No UTI. Will obtain CT abdomen pelvis to go further detail and the cause of pain 09/11/22 12:13 She is feeling much better on reevaluation after second dose of morphine and has no peritoneal signs. She is pain-free. CT abdomen pelvis did not show any obstructive uropathy, pyelonephritis, acute cholecystitis/choledocholithiasis, pancreatitis, intestinal obstruction/perforation etc. Do not know the exact cause of her pain but patient is having vomiting and diarrhea as well which could be possibly viral etiology gastroenteritis. We will give her Zofran to go home and recommended Tylenol/ibuprofen as needed. Discussed signs symptoms of worsening needing return to ER which she seems understanding. Counseled pt/family regarding: lab results, diagnosis, need for follow-up, rad results Medical Desision Making - Diagnostic Testing Diagnostic test were ordered, analyzed, and reviewed by me: Yes Radiological Interpretation: Reviewed by me, Teleradiologist Report - Departure Departure Disposition: Home Clinical Impression: Right sided abdominal pain, Nausea vomiting and diarrhea Condition: Stable Critical Care Time: No Referrals: KAILEY FELIX NP, RN [Primary Care Provider] - Follow up with PCP 1 day Instructions: Severe Abdominal Pain, Adult (DC) Additional Instructions: Take Tylenol/ibuprofen as needed for pain. Take Zofran as needed for nausea vomiting. Drink plenty of fluids to keep yourself well-hydrated. Follow-up with primary care for reevaluation in 1 to 2 days. Return to ER for intractable abdominal pain/vomiting/fever chills etc. Prescriptions: Ondansetron ODT 4 MG [Zofran Odt 4 mg] 1 ea PO QIDPRN PRN #7 tablet PRN Reason: n/v
[2022-09-11] MEDS ORDERED: Sodium Chloride 0.9% 1000 ML 1,000 ML ONE (10:02)
[2022-09-11] MEDS ORDERED: Reglan 10 MG/2 ML ONE (10:02)
--- NOTE | 2022-09-11 11:50 | XRAY ---
CLINICAL HISTORY:right side pain COMPARISON:prior scan dated 09/14/2021 TECHNIQUE:CT scan of the abdomen was performed without IV contrast. Bowel loops are opacified by prior administration of oral contrast. Delayed images were also obtained. FINDINGS: Few small 2mm non-obstructing calculi are seen at upper, mid and lower calyces of both kidneys. No hydronephrosis or hydroureter is seen on either side. The kidneys are normal in size and shape. Urinary bladder is unremarkable, no hyperdense calculus / wall thickening noted. The liver is mildly enlarged in size and measures 17.6 cm. No focal parenchymal abnormality. The portal vein, intrahepatic biliary radicals and the bile ducts are normal. The spleen is also mildly enlarged in size, measuring 12.6cm. No mass is seen. Fat containing umbilical hernia is noted. Fat containing right inguinal hernia is noted. Pancreas normal in size. GB is unremrakable. The visualized small and large bowel loops are unremarkable. There is no evidence of significant enlargement of the mesenteric or retroperitoneal lymph nodes. Uterus and both ovaries are unremarkable. Degenerative changes seen in the visualized spine with prominent anterior osteophytes. No lytic or sclerotic bone lesions. IMPRESSION: Small non-obstructing bilateral renal calculi. No hydronephrosis or hydroureter is seen on either side. ( only right lower pole and left upper and mid pole calculi seen in prior scan - Calculi has increased in number on comparison. Mild hepatosplenomegaly. (Stable) Fat containing umbilical hernia and inguinal hernia.( stable ) Electronically Signed by: John Yu MD. (09/11/2022 10:48:39 [employer])
[2022-09-11 12:17] VITALS: O2SAT 97
[2022-09-11 12:22] VITALS: BP 125/65; PULSE 86
== END 2022-09-11 12:25 | disposition home or self-care (01) ==
LOC: ED 07:50
DX: R11.2 Nausea with vomiting, unspecified (principal); R19.7 Diarrhea, unspecified; R10.11 Right upper quadrant pain; R10.31 Right lower quadrant pain; E10.9 Type 1 diabetes mellitus without complications; Z79.899 Other long term (current) drug therapy
CPT/HCPCS: 36000; 36415; 74176; 80053; 81001; 81025; 83690; 85025; 96360; 96374; 96375; 96376; 99284; J2270; J2405

== ENCOUNTER 2023-02-01 10:48 | Emergency (ER) | payer OTHER ==
--- NOTE | 2023-02-01 10:55 | ERPHSYRPT ---
- History of Present Illness Time Seen by Provider: 02/01/23 10:55 Historian: patient Exam Limitations: no limitations Physician History: This is a 42-year-old white female patient of Dr. Garcia who presents with 1 to 2-day history of headache, nausea and 1 episode of vomiting. Patient denies head injury. She does not recall being exposed to individuals with similar symptoms. She does have some muscle aches as well. Patient took a home COVID test 2 days ago and it was negative. Patient is a daily smoker of cigarettes. Patient is not short of breath. She does not have chest pain. Patient does have a history of migraine headaches, insulin-dependent diabetes, hypertension and hyperlipidemia. Patient has no abdominal pain. She has not had any diarrheal symptoms. Timing/Duration: day(s) (1 to 2 days) Activities at Onset: none Quality: aching Severity of Pain-Max: mild (To moderate headache) Severity of Pain-Current: mild (To moderate headache) Associated Symptoms: loss of appetite, nausea, vomiting, other (Muscle aches and pains) Previous symptoms: no prior history, no recent treatment Allergies/Adverse Reactions: No Known Drug Allergies Allergy (Verified 02/01/23 11:01) Home Medications: Insulin Lispro [Admelog] 1 unit SQ UD 09/21/21 [History] Simvastatin 20Mg [Zocor 20Mg] 40 mg PO DAILY 09/21/21 [History] Tizanidine HCl 4 mg [Zanaflex 4 MG] 2 tab PO DAILY 09/21/21 [History] Hx Tetanus, Diphtheria Vaccination/Date Given: No Hx Influenza Vaccination/Date Given: Yes Hx Pneumococcal Vaccination/Date Given: No Travel Risk - International Travel Have you traveled outside of the country in past 3 weeks: No - Coronavirus Screening Are you exhibiting any of the following symptoms?: Yes Symptoms: Vomiting/Diarrhea, Headaches/Body Aches/Fatigue Close contact with a COVID-19 positive Pt in past 14-21 Days: No - Vaccine Status Have you recieved a Covid-19 vaccination: Yes Upper Cutter Machine: InSphero - Review of Systems Constitutional: No Symptoms Eyes: No Symptoms Ears, Nose, & Throat: No Symptoms Respiratory: No Symptoms Cardiac: No Symptoms Abdominal/Gastrointestinal: Nausea, Vomiting, Appetite Changes, No Abdominal Pain, No Diarrhea Genitourinary Symptoms: No Symptoms Musculoskeletal: Arthralgias, Myalgias Neurological: Headache Psychological: No Symptoms Endocrine: No Symptoms Hematologic/Lymphatic: No Symptoms Immunological/Allergic: No Symptoms All Other Systems: Reviewed and Negative - Past Medical History Pertinent Past Medical History: Yes Neurological History: Migraines ENT History: No Pertinent History Cardiac History: Other Respiratory History: No Pertinent History Endocrine Medical History: Diabetes Type II Musculoskeletal History: No Pertinent History GI Medical History: No Pertinent History History: No Pertinent History Psycho-Social History: Depression Female Reproductive Disorders: No Pertinent History Other Medical History: 3 CARPAL TUNNEL SURGERIES. HEART PALPATIONS. - Past Surgical History Past Surgical History: Yes Neuro Surgical History: No Pertinent History Cardiac: No Pertinent History Respiratory: No Pertinent History Gastrointestinal: No Pertinent History Genitourinary: No Pertinent History Musculoskeletal: No Pertinent History Female Surgical History: Section, Tubal Ligation Other Surgical History: 3 HAND SURGERY, cyst removed from back. X 2 - Social History Smoking Status: Never smoker How long have you smoked: years Exposure to second hand smoke: No Drug Use: none Patient Lives Alone: No - Nursing Vital Signs Nursing Vital Signs: Initial Vital Signs Pulse Rate 70 02/01/23 11:01 Respiratory Rate 15 02/01/23 11:01 Blood Pressure 131/62 02/01/23 11:01 Pain Scale Pain Intensity 6 - Physical Exam General Appearance: no apparent distress, alert, anxiety Eye Exam: PERRL/EOMI, eyes nml inspection Ears, Nose, Throat Exam: normal ENT inspection, moist mucous membranes Neck Exam: normal inspection, non-tender, supple, full range of motion Respiratory Exam: normal breath sounds, lungs clear, airway intact, No chest tenderness, No respiratory distress Cardiovascular Exam: regular rate/rhythm, normal heart sounds, normal peripheral pulses Gastrointestinal/Abdomen Exam: soft, normal bowel sounds, No tenderness Pelvic Exam: not done Rectal Exam: not done Back Exam: normal inspection, normal range of motion, No CVA tenderness, No vertebral tenderness Extremity Exam: normal inspection, normal range of motion, pelvis stable Neurologic Exam: alert, oriented x 3, cooperative, nodulizer II-XII nml as tested, normal mood/affect, nml cerebellar function, nml station & gait, sensation nml Skin Exam: normal color, warm, dry Lymphatic Exam: No adenopathy SpO2 Interpretation: normal O2 Delivery: Room Air - Course Nursing assessment & vital signs reviewed: Yes Ordered Tests: Active Orders 24 hr Category Date Time Status IV Insertion STAT Care 02/01/23 11:11 Active Pulse Oximetry (ED) STAT Care 02/01/23 11:11 Active CHEST 1 VIEW (PORTABLE) Stat Exams 02/01/23 11:11 Completed BLOOD CULTURE Stat Lab 02/01/23 11:11 Received CBC W DIFF Stat Lab 02/01/23 11:55 Completed CMP Stat Lab 02/01/23 11:55 Completed MONO SCREEN Stat Lab 02/01/23 11:55 Completed UA W/RFX UR CULTURE Stat Lab 02/01/23 11:20 Completed Medication Summary Discontinued Medications Generic Name Dose Route Start Last Admin Trade Name Freq PRN Reason Stop Dose Admin Hydrocodone Bitart/Acetaminophen 15 ml 02/01/23 12:03 02/01/23 12:07 Hydrocodone/Acetaminophen 5 Ml Udcup PO 02/01/23 12:04 15 ml STAT STA Administration Hydrocodone Bitart/Acetaminophen Confirm 02/01/23 12:06 Hydrocodone/Acetaminophen 5 Ml Udcup Administered 02/01/23 12:07 Dose 15 ml .ROUTE .STK-MED ONE Sodium Chloride 1,000 mls @ 999 mls/hr 02/01/23 11:11 02/01/23 12:22 Sodium Chloride 0.9% 1000 Ml IV 02/01/23 12:11 Infused .Q1H1M STA Infusion Sodium Chloride Confirm 02/01/23 11:15 Sodium Chloride 0.9% 1000 Ml Administered 02/01/23 11:16 Dose 1,000 mls @ ud .ROUTE .STK-MED ONE Lab/Rad Data: Laboratory Result Diagrams 02/01/23 11:55 02/01/23 11:55 Laboratory Results 02/01/23 02/01/23 02/01/23 Range/Units 11:58 11:55 11:55 WBC (4.0-10.5) x10^3/uL RBC (4.1-5.4) x10^6/uL Hgb (12.0-16.0) g/dL Hct (35-47) % MCV (78-100) fL MCH (26-32) pg MCHC (32-36) g/dL RDW (11.5-14.0) % Plt Count (150-450) x10^3/uL MPV (7.5-11.0) fL Gran % (36.0-66.0) % Immature Gran % (Auto) (0.00-0.4) % Nucleat RBC Rel Count (0.00-0.1) % Eos # (Auto) (0-0.5) x10^3/uL Immature Gran # (Auto) (0.00-0.03) x10^3u/L Absolute Lymphs (auto) (1.0-4.6) x10^3/uL Absolute Monos (auto) (0.0-1.3) x10^3/uL Absolute Nucleated RBC (0.00-0.01) x10^3u/L Lymphocytes % (24.0-44.0) % Monocytes % (0.0-12.0) % Eosinophils % (0.00-5.0) % Basophils % (0.0-0.4) % Absolute Granulocytes (1.4-6.9) x10^3/uL Basophils # (0-0.4) x10^3/uL Sodium 136 L (137-145) mmol/L Potassium 4.3 (3.5-5.1) mmol/L Chloride 106 (98-107) mmol/L Carbon Dioxide 24 (22-30) mmol/L Anion Gap 11.4 (5-15) MEQ/L BUN 12 (7-17) mg/dL Creatinine 0.64 (0.52-1.04) mg/dL Estimated GFR 112.4 ML/MIN Glucose 168 H (74-106) mg/dL Calcium 9.1 (8.4-10.2) mg/dL Total Bilirubin 0.70 (0.2-1.3) mg/dL AST 31 (14-36) U/L ALT 21 (0-35) U/L Alkaline Phosphatase 88 (38-126) U/L Serum Total Protein 7.3 (6.3-8.2) g/dL Albumin 4.0 (3.5-5.0) g/dL Urine Color (Yellow) Urine Appearance (Clear) Urine pH (4.6-8.0) Ur Specific [place] (1.005-1.030) Urine Protein (Negative) Urine Glucose (UA) (Negative) mg/dL Urine Ketones (Negative) Urine Blood (Negative) Urine Nitrite (Negative) Urine Bilirubin (Negative) Urine Urobilinogen (0.2) mg/dL Ur Leukocyte Esterase (Negative) U Hyaline Cast (Auto) (0-2) /LPF Urine Microscopic RBC (0-5) /HPF Urine Microscopic WBC (0-5) /HPF Ur Epithelial Cells (None Seen) /HPF Urine Bacteria (None Seen) /HPF Urine Culture Reflexed (NO) Monoscreen NEGATIVE (NEGATIVE) Influenza Type A Ag NEGATIVE (NEGATIVE) Influenza Type B Ag NEGATIVE (NEGATIVE) RSV (PCR) NEGATIVE (NEGATIVE) SARS-CoV-2 (PCR) NEGATIVE (NEGATIVE) 02/01/23 02/01/23 Range/Units 11:55 11:20 WBC 10.8 H (4.0-10.5) x10^3/uL RBC 4.52 (4.1-5.4) x10^6/uL Hgb 14.0 (12.0-16.0) g/dL Hct 41.9 (35-47) % MCV 92.7 (78-100) fL MCH 31.0 (26-32) pg MCHC 33.4 (32-36) g/dL RDW 11.9 (11.5-14.0) % Plt Count 256 (150-450) x10^3/uL MPV 10.7 (7.5-11.0) fL Gran % 79.8 H (36.0-66.0) % Immature Gran % (Auto) 0.3 (0.00-0.4) % Nucleat RBC Rel Count 0.0 (0.00-0.1) % Eos # (Auto) 0.07 (0-0.5) x10^3/uL Immature Gran # (Auto) 0.03 (0.00-0.03) x10^3u/L Absolute Lymphs (auto) 1.43 (1.0-4.6) x10^3/uL Absolute Monos (auto) 0.59 (0.0-1.3) x10^3/uL Absolute Nucleated RBC 0.00 (0.00-0.01) x10^3u/L Lymphocytes % 13.3 L (24.0-44.0) % Monocytes % 5.5 (0.0-12.0) % Eosinophils % 0.7 (0.00-5.0) % Basophils % 0.4 (0.0-0.4) % Absolute Granulocytes 8.60 H (1.4-6.9) x10^3/uL Basophils # 0.04 (0-0.4) x10^3/uL Sodium (137-145) mmol/L Potassium (3.5-5.1) mmol/L Chloride (98-107) mmol/L Carbon Dioxide (22-30) mmol/L Anion Gap (5-15) MEQ/L BUN (7-17) mg/dL Creatinine (0.52-1.04) mg/dL Estimated GFR ML/MIN Glucose (74-106) mg/dL Calcium (8.4-10.2) mg/dL Total Bilirubin (0.2-1.3) mg/dL AST (14-36) U/L ALT (0-35) U/L Alkaline Phosphatase (38-126) U/L Serum Total Protein (6.3-8.2) g/dL Albumin (3.5-5.0) g/dL Urine Color Dark Yellow A (Yellow) Urine Appearance Clear (Clear) Urine pH 7.5 (4.6-8.0) Ur Specific [place] 1.020 (1.005-1.030) Urine Protein 30 (Negative) Urine Glucose (UA) Negative (Negative) mg/dL Urine Ketones Trace A (Negative) Urine Blood Negative (Negative) Urine Nitrite Negative (Negative) Urine Bilirubin Negative (Negative) Urine Urobilinogen 1.0 A (0.2) mg/dL Ur Leukocyte Esterase Negative (Negative) U Hyaline Cast (Auto) NONE SEEN (0-2) /LPF Urine Microscopic RBC 0-2 (0-5) /HPF Urine Microscopic WBC 0-2 (0-5) /HPF Ur Epithelial Cells Few (None Seen) /HPF Urine Bacteria None Seen (None Seen) /HPF Urine Culture Reflexed NO (NO) Monoscreen (NEGATIVE) Influenza Type A Ag (NEGATIVE) Influenza Type B Ag (NEGATIVE) RSV (PCR) (NEGATIVE) SARS-CoV-2 (PCR) (NEGATIVE) - Progress Progress: improved, re-examined Progress Note: 02/01/23 13:16 This patient's medical issue is 1 of moderate complexity. The level complex in the workup performed is based on review of the patient's past medical history, review the patient's medication list, review the patient's drug allergy list, history of present illness and physical findings on examination. The workup in this patient includes placement of intravenous line, infusion of normal saline s olution, CBC, CMP, urinalysis, viral testing, monotest. We will also provide the patient with hydrocodone elixir. 02/01/23 13:17 I reviewed and interpreted the laboratory data results. Patient does not have an acute, emergent abnormality on her lab results today. Chest x-ray was interpreted by radiologist. There is no evidence of any acute or new cardiopulmonary process. Counseled pt/family regarding: lab results, diagnosis, need for follow-up, rad results Medical Desision Making - Independent Historian Additional History obtained from: Spouse - Diagnostic Testing Diagnostic test were ordered, analyzed, and reviewed by me: Yes Radiological Interpretation: Reviewed by me, Teleradiologist Report - Risk of complications The pt has a mod risk of morbidity or mortality based on: Need for prescription drug management - Departure Departure Disposition: Home Clinical Impression: Vomiting, Headache Condition: Stable Critical Care Time: No Referrals: KAILEY FELIX NP, RN [NON-STAFF PHY W/O PRIVILEGES] - Follow up/PCP as directed Additional Instructions: Drink plenty of clear liquids before advancing your diet. Take your medication as prescribed. Follow-up with your primary care provider today, 02/01/2023, to make arrangements for follow-up appointment the next 3 to 5 days. Prescriptions: Ondansetron ODT 4 MG [Zofran Odt 4 mg] 4 mg PO Q6H PRN PRN #10 tablet PRN Reason: Vomiting Hydrocodone/Acetaminophen [Hydrocodone-Acetamn 7.5-325/15] 10 ml PO Q8H PRN #120 ml MDD 30 ml PRN Reason: Cough
[2023-02-01] MEDS ORDERED: Sodium Chloride 0.9% 1000 ML 1,000 ML IV STA (11:11)
[2023-02-01] MEDS ORDERED: Sodium Chloride 0.9% 1000 ML 1,000 ML ONE (11:15)
[2023-02-01 11:26] LABS: Appearance Clear (Clear); Bacteria None Seen /HPF (None Seen); Bilirubin Negative (Negative); Blood Negative (Negative); Epithelial Cells Few /HPF (None Seen); Glucose, Urine Negative (Negative); Hyaline Casts NONE SEEN /LPF (0-2); Ketones Trace (Negative); Leukocyte Esterase Negative (Negative); Nitrite Negative (Negative); Ph 7.5 (4.6-8.0); Protein,Urine Dip 30 (Negative); RBC 0-2 /HPF (0-5); WBC 0-2 /HPF (0-5)
[2023-02-01 11:35] LABS: ADD URINE CULTURE? NO (NO)
--- NOTE | 2023-02-01 11:52 | XRAY ---
Indication: Fever. Comparison: May 13, 2022 Portable chest is now clear. Heart not enlarged. Bony thorax intact. No new/acute findings.
[2023-02-01 11:58] LABS: BASOPHIL % 0.4 % (0.0-0.4); Basophil (Absolute #) 0.04 x10^3/uL (0-0.4); Eosinophil % 0.7 % (0.00-5.0); Eosinophil (Absolute #) 0.07 x10^3/uL (0-0.5); Hematocrit 41.9 % (35-47); IMMATURE GRAN # 0.03 x10^3u/L (0.00-0.03); IMMATURE GRAN % 0.3 % (0.00-0.4); Lymphocyte (Absolute #) 1.43 x10^3/uL (1.0-4.6); Lymphocytes % 13.3 % (24.0-44.0); Mean Cell Volume 92.7 fL (78-100); Mean Corpuscular Hgb Concent. 33.4 g/dL (32-36); Mean Platelet Volume 10.7 fL (7.5-11.0); Monocyte (Absolute #) 0.59 x10^3/uL (0.0-1.3); Monocytes % 5.5 % (0.0-12.0); Neutrophil % 79.8 % (36.0-66.0); Platelet Count 256 x10^3/uL (150-450); Red Blood Count 4.52 x10^6/uL (4.1-5.4); Red Cell Distribution Width 11.9 % (11.5-14.0); White Blood Count 10.8 x10^3/uL (4.0-10.5)
[2023-02-01] MEDS ORDERED: HYDROCODONE-ACETAMIN 2.5-108/5 ML SOLUTION PO STA (12:03)
[2023-02-01] MEDS ORDERED: HYDROCODONE-ACETAMIN 2.5-108/5 ML SOLUTION ONE (12:06)
[2023-02-01 12:13] LABS: ANION GAP 11.4 MEQ/L (5-15); BILIRUBIN,TOTAL 0.7 mg/dL (0.2-1.3); Calcium 9.1 mg/dL (8.4-10.2); Creatinine 1 0.64 mg/dL (0.52-1.04); EST GLOMERULAR FILTRATION RATE 112.4 ML/MIN; Potassium 4.3 mmol/L (3.5-5.1); Total Protein 7.3 g/dL (6.3-8.2)
[2023-02-01 12:38] LABS: INFLUENZA A NEGATIVE (NEGATIVE); INFLUENZA B NEGATIVE (NEGATIVE); RESPIRATORY SYNCTIAL VIRUS NEGATIVE (NEGATIVE); SARS-CoV-2 Xpert Express NEGATIVE (NEGATIVE)
[2023-02-01 13:31] VITALS: O2SAT 96
[2023-02-01 13:49] VITALS: BP 135/61; PULSE 78; RESP 18; TEMP 98.3
== END 2023-02-01 13:40 | disposition home or self-care (01) ==
LOC: ED 10:48
DX: R51.9 Headache, unspecified (principal); R11.2 Nausea with vomiting, unspecified; M79.10 Myalgia, unspecified site; E11.9 Type 2 diabetes mellitus without complications; I10 Essential (primary) hypertension; E78.5 Hyperlipidemia, unspecified; Z79.891 Long term (current) use of opiate analgesic; Z79.4 Long term (current) use of insulin; Z79.899 Other long term (current) drug therapy; Z72.0 Tobacco use
CPT/HCPCS: 0241U; 36000; 36415; 71045; 80053; 81001; 85025; 86308; 87040; 94760; 99284; A9270-GY

== ENCOUNTER 2024-02-06 06:02 | Day surgery (SDC) | payer OTHER ==
[2024-02-06] MEDS ORDERED: CEFAZOLIN 2 GM/100 ML NaCl 2 GM/100 ML IVPB IV ONE (06:15)
[2024-02-06] MEDS ORDERED: Reglan 10 MG/2 ML ONE (06:15)
[2024-02-06] MEDS ORDERED: Transderm Scop 1.5MG Patch ONE (06:15)
[2024-02-06] MEDS ORDERED: Pepcid 20 MG VIAL IV ONE (06:15)
[2024-02-06] MEDS ORDERED: Lactated Ringers 1,000 ML IV ONE (06:16)
[2024-02-06 06:22] LABS: HCG URINE TEST NEGATIVE (NEGATIVE)
[2024-02-06] MEDS: Pepcid 20 MG VIAL IV ONE (06:25)
[2024-02-06] MEDS: Transderm Scop 1.5MG Patch TOP PRN (06:26)
[2024-02-06] MEDS: CEFAZOLIN 2 GM/100 ML NaCl 2 GM/100 ML IVPB IV SCH (06:26)
[2024-02-06] MEDS: Reglan 10 MG/2 ML IV ONE (06:26)
[2024-02-06] MEDS: Lactated Ringers 1,000 ML IV SCH (06:26)
[2024-02-06 06:32] VITALS: BP 153/66; PULSE 62; RESP 16; TEMP 97.9; O2SAT 97
[2024-02-06 07:19] LABS: ANION GAP 12.7 MEQ/L (5-15); Calcium 9.3 mg/dL (8.4-10.2); Creatinine 1 0.7 mg/dL (0.52-1.04); EST GLOMERULAR FILTRATION RATE 109.3 ML/MIN; Potassium 4.1 mmol/L (3.5-5.1)
== END 2024-02-06 08:15 | disposition home or self-care (01) ==
LOC: SDC 06:02
PROVIDERS: ATTEND Obstetrics & Gynecology
DX: Z53.8 Procedure and treatment not carried out for other reasons (principal)
CPT/HCPCS: 36415; 80048; 81025; 93005; J0690; A9270-GY

== ENCOUNTER 2024-04-09 11:57 | Day surgery (SDC) | payer OTHER ==
[2024-04-09 06:48] LABS: HCG URINE TEST NEGATIVE (NEGATIVE)
[2024-04-09 06:49] VITALS: RESP 18
[2024-04-09] MEDS: Reglan 10 MG/2 ML IV ONE (07:02)
[2024-04-09] MEDS: Pepcid 20 MG VIAL IV ONE (07:02)
[2024-04-09] MEDS: CEFAZOLIN 2 GM/100 ML NaCl 2 GM/100 ML IVPB IV SCH (07:02)
[2024-04-09] MEDS: Transderm Scop 1.5MG Patch TOP ONE (07:02)
[2024-04-09] MEDS: Lactated Ringers 1,000 ML IV SCH (07:02)
[2024-04-09 07:49] LABS: ANION GAP 8.5 MEQ/L (5-15); Calcium 8.6 mg/dL (8.4-10.2); Creatinine 1 0.74 mg/dL (0.52-1.04); EST GLOMERULAR FILTRATION RATE 102.3 ML/MIN; Potassium 4.1 mmol/L (3.5-5.1)
[~2024-04-09 11:57] MED LIST: BENADRYL 50 MG/ML ONE; Compazine 10 MG/2 ML ONE; Phenergan 25 MG INJ ONE; SUBLIMAZE 100 MCG/2 ML ONE; TORAdol 30 mg Injection ONE; Versed 2 MG/2 ML Injection ONE; Xylocaine-Mpf 2% 5 Ml Vial ONE; Zofran 4 MG/2 ML VIAL ONE; dexAMETHasone sodium phosphate ONE; propofoL IV ONE
[2024-04-09 12:27] VITALS: PULSE 91; TEMP 96.9
[2024-04-09 12:40] VITALS: BP 100/59; O2SAT 98
--- NOTE | 2024-04-11 09:14 | OP ---
SURGERY DATE/TIME: 04/09/2024 [id number] PREOPERATIVE DIAGNOSIS: Menorrhagia. POSTOPERATIVE DIAGNOSIS: Menorrhagia. PROCEDURE: Hysteroscopy, dilatation and curettage, with NovaSure ablation. SURGEON: Sveeriano King DO COMBINATION SAW OPERATOR: Terri Ocampo ANESTHESIA: General. ESTIMATED BLOOD LOSS: Minimal. COMPLICATIONS: None. INDICATIONS: The risks, benefits, indications, and alternatives of the procedure were reviewed with the patient prior to the procedure. Patient understood the risks of infection, bleeding, bowel injury, bladder injury, uterine perforation, pelvic infection, and thromboembolic disorder associated with the surgery and desires to have the surgery as a possible means to alleviate her current medical condition. DESCRIPTION OF PROCEDURE AND FINDINGS: At this point, patient was taken to the operating room, given general sedation, placed in the dorsal lithotomy position, prepped and draped in the usual sterile fashion. A weighted speculum was then placed in the patient's vagina, and the anterior lip of the cervix was grasped with a single-tooth tenaculum. Endocervical dilators were advanced through the endocervical canal as a means to dilate the cervix, and the uterus was sound to approximately 12 cm. From this point, the 5 mm hysteroscope was then placed through the endocervical region where visualization of the uterine cavity appeared to be within normal limits, with no gross abnormalities that were noted. From this point, the hysteroscope was removed and a curette was then placed into the fundus of the uterus. Curettage was performed in all quadrants of the uterus, retrieving a [id number] amount of tissue. At this point, hemostasis was obtained. From this point, the NovaSure was then placed through the endocervical region toward the fundal region, retracted approximately 1 cm and was engaged with a length of 6.5 cm and a width of 3.0 cm, and the machine was turned on for an ablative time of 46 seconds. After ablation, the instrument was disengaged and removed from the uterine cavity without complication. All other instruments were removed in a similar fashion without complication. From this point, the patient was then taken out of the dorsal lithotomy position, was taken out of anesthesia, and was then taken to the recovery room in stable condition. All instruments and laps were accounted for x2.
== END 2024-04-09 12:55 | disposition home or self-care (01) ==
LOC: SDC 11:57
PROVIDERS: ATTEND Obstetrics & Gynecology
DX: N92.0 Excessive and frequent menstruation with regular cycle (principal)
CPT/HCPCS: 36415; 58563; 80048; 81025; 93005; J0690; J1100; J1200; J1885; J2250; J2405; J2550; J2704; J3010; A9270-GY

== ENCOUNTER 2024-07-08 10:22 | Day surgery (SDC) | payer OTHER ==
[2024-07-08] MEDS ORDERED: Sodium Chloride 0.9% 1000 ML 1,000 ML ONE (10:41)
[2024-07-08] MEDS: Sodium Chloride 0.9% 1000 ML 1,000 ML IV SCH (10:45)
[2024-07-08 10:48] LABS: HCG URINE TEST NEGATIVE (NEGATIVE)
[2024-07-08 11:00] VITALS: RESP 18
[2024-07-08] MEDS ORDERED: Lactated Ringers 1,000 ML IV SCH (11:00)
[2024-07-08] MEDS ORDERED: Versed 2 MG/2 ML Injection ONE (12:56)
[2024-07-08] MEDS ORDERED: Xylocaine-Mpf 2% 5 Ml Vial ONE (12:56)
[2024-07-08] MEDS ORDERED: propofoL IV ONE ×2 (12:56→13:07)
[2024-07-08 13:51] VITALS: O2SAT 100
[2024-07-08 14:21] VITALS: BP 143/72; PULSE 62; TEMP 97.2
--- NOTE | 2024-07-11 10:03 | OP ---
SURGERY DATE/TIME: 07/08/2024 [id number]. PREOPERATIVE DIAGNOSIS: Upper abdominal pain (right). POSTOPERATIVE DIAGNOSES: 1) Gastritis. 2) Duodenitis. PROCEDURE: Esophagogastroduodenoscopy with biopsies. SURGEON: Arely Swain MD ANESTHESIA: MAC. ESTIMATED BLOOD LOSS: Minimal. COMPLICATIONS: None. SPECIMENS: Antral biopsy and duodenal bulb biopsy. INDICATIONS: This is a patient who presents with upper abdominal pain. She has had multiple tests and now presents for EGD to look for an upper GI source. A colonoscopy has also been recommended and she will consider this, but would like to proceed with the EGD alone first. She understands the procedure details, the risks, the benefits, and the alternatives. I have answered all questions to her satisfaction, and she would like to proceed. Her H and P and consent have all been completed. DESCRIPTION OF PROCEDURE AND FINDINGS: She was then brought back to the endoscopy suite, laid in the left lateral decubitus position. A complete time-out was performed. I then inserted the scope gently into the mouth, oropharynx, into the esophagus, stomach, and then to the duodenum. The scope was advanced to the level of the 2nd portion of the duodenum. We did see the ampulla, which was normal. The 2nd portion of the duodenum was normal. There was mild duodenitis in the bulb of the duodenum only. As we withdrew back into the stomach, we did see gastritis in the stomach. There were three areas that were slightly scarred with some residual inflammation. These could be areas of healed ulcers just from the look of these sites, but there are no active ulcers currently. She does have some patchy gastritis throughout her stomach with erythema. I did take biopsies in the antrum and in the duodenal bulb and send these to pathology, and this was done with a cold forceps. All sites from biopsy were hemostatic. Then we carefully retroflexed and then carefully withdrew the scope. The GE junction had some very minimal laxity, but there is no significant hiatal hernia here. The mucosa of the esophagus looks normal and then the scope was able to be withdrawn. There were no other findings in the procedure. The patient tolerated the procedure very well. There were no immediate complications. I discussed all of her findings with her family in the postoperative area. She will also see me as an outpatient. We have discussed diet changes that could help her pain as well as have her on a PPI and Carafate for the gastritis that has been persistent, and then we will also await the biopsies to determine a further plan. I did also discuss with her , based on some of her symptoms, she should consider a colonoscopy.
== END 2024-07-08 14:20 | disposition home or self-care (01) ==
LOC: SDC 10:22
PROVIDERS: ATTEND Surgery
DX: K29.70 Gastritis, unspecified, without bleeding (principal); R10.11 Right upper quadrant pain; K29.80 Duodenitis without bleeding; E11.9 Type 2 diabetes mellitus without complications
CPT/HCPCS: 81025; 82947; J2250; J2704

== ENCOUNTER 2024-12-09 12:49 | Day surgery (SDC) | payer OTHER ==
[2024-12-09 13:01] LABS: HCG URINE TEST NEGATIVE (NEGATIVE)
[2024-12-09 13:22] LABS: Calcium 8.9 mg/dL (8.4-10.2); Carbon Dioxide 24.0 mmol/L (22-30); Creatinine 1 0.68 mg/dL (0.52-1.04); EST GLOMERULAR FILTRATION RATE 109.4 ML/MIN; Glucose 128.0 mg/dL (74-106); Potassium 4.3 mmol/L (3.5-5.1)
[2024-12-09] MEDS ORDERED: propofoL IV ONE ×6 (14:11→15:17)
[2024-12-09] MEDS ORDERED: Xylocaine-Mpf 2% 5 Ml Vial ONE (14:11)
[2024-12-09] MEDS ORDERED: GlucaGen 1 MG ONE (14:47)
[2024-12-09] MEDS ORDERED: PHENYLEPHRINE HCL ONE (14:51)
[2024-12-09] MEDS ORDERED: Versed 2 MG/2 ML Injection ONE (15:13)
[2024-12-09] MEDS ORDERED: SUBLIMAZE 100 MCG/2 ML ONE (15:14)
[2024-12-09 16:07] VITALS: RESP 16; O2SAT 100
[2024-12-09 16:17] VITALS: BP 126/50; PULSE 71; TEMP 96.9
--- NOTE | 2024-12-10 17:20 | OP ---
SURGERY DATE/TIME: 12/09/2024 [id number] PREOPERATIVE DIAGNOSES: Abdominal pain and change in bowel function. POSTOPERATIVE DIAGNOSES: Gastritis, hiatal hernia, colon polyp, severe colonic left-sided spasm, hemorrhoid disease, diverticulosis, hiatal hernia - no findings of Garcia disease, GE junction at 40 cm. PROCEDURE: Esophagogastroduodenoscopy with biopsies and colonoscopy with hot snare polypectomy and cold forceps polypectomy and cold forceps biopsies. SURGEON: Arely Swain MD. ANESTHESIA: General. ESTIMATED BLOOD LOSS: Minimal. COMPLICATIONS: None. SPECIMENS: Antral biopsy, gastric body biopsy, cecal polyp, sigmoid polyp, sigmoid colitis. REMINDER: Colonoscopy in 3 years, EGD p.r.n. INDICATIONS: This is a 43-year-old patient who presents to my office with abdominal pain and a change in bowel function. She has never had a colonoscopy prior. She understands the procedure detail and the risks and benefits and alternatives for both EGD and colonoscopy. All her questions have been answered to her satisfaction. She did well with her bowel prep, and she would like to proceed. Consent and H and P have both been obtained and confirmed. DESCRIPTION OF PROCEDURE AND FINDINGS: She was then brought back to the endoscopy suite, laid in the left lateral decubitus position. A complete time-out was performed. The scope was gently introduced into the mouth, oropharynx, down into the esophagus, stomach, and into the second portion of the duodenum. The duodenum overall looked normal for the portion that was visualized. As we withdrew the scope back into the stomach, we again visualized the gastritis which is in the lower body and courses up towards the mid body of the stomach. The gastritis is significant but localized where it is the most severe, erythematous, and nodular. Outside of this, there was more minor gastritis throughout the remainder of the stomach in a patchy fashion which was more minimal. We biopsied in the antrum to rule out H pylori. I also biopsied the gastric body where the moderate gastritis was. The entire stomach looked benign. There are no masses or concerning findings. On retroflexed view, she does also have a small hiatal hernia. The biopsy sites were all hemostatic. Everything looked very good here and so then we carefully withdrew the scope back into the distal esophagus. She does have some free flow reflux at the GE junction and she does again have a small hiatal hernia. The scope was then completely withdrawn. The remainder of the esophagus looked normal and then the scope was fully removed. The patient does have respiratory secretions also noted that were suctioned. We then repositioned the patient for colonoscopy. First, a rectal inspection and then a digital exam were done. The patient has moderate hemorrhoid disease with enlarged external hemorrhoids in the right anterior and bilateral posterior region as well as internal bilateral posterior enlarged hemorrhoids. No other findings and no active bleeding noted. The scope was then inserted and gently advanced to the level of the cecum. The patient had severe colonic spasm, particularly along the entire left side of the colon and so we did give glucagon to help with this. In the cecum, we visualized the appendiceal orifice and ileocecal valve clearly. There was a polyp in the cecum that was about 5 mm. This was taken in entirety with a hot snare and retrieved in a trap and sent to Pathology. The site was hemostatic and the polyp was fully removed. Otherwise, the cecum looked normal. The ileocecal valve itself looked normal. This was entered in the immediate terminal ileum for about 10 cm, looked normal. The scope was then withdrawn and carefully withdrawn throughout the colon taking a circumferential view. Cold forceps biopsies were taken in the sigmoid colon because the patient had some mild patchy erythema scattered throughout the entire sigmoid colon. She also had one very small sigmoid polyp that was approximately 2 mm that was taken in entirety with a cold forceps. I did also initially think there was a polyp in the descending colon as this appeared to be a subtle small mucosal protrusion; however, with further insufflation and copiously irrigating and reviewing this area for about 20 minutes, we cannot find a polyp. Instead, there is a diverticulum here and this may have been an inverted diverticulum. Her prep overall was good, and I did not see any other findings of concern throughout the colon. The scope was then withdrawn back to the rectum. The hemorrhoids were again seen, and then the scope was fully withdrawn. No other findings. The patient tolerated the procedure very well. There were no immediate complications.
== END 2024-12-09 16:27 | disposition home or self-care (01) ==
LOC: SDC 12:49
PROVIDERS: ATTEND Surgery
DX: R19.4 Change in bowel habit (principal); R10.9 Unspecified abdominal pain; K29.70 Gastritis, unspecified, without bleeding; K44.9 Diaphragmatic hernia without obstruction or gangrene; K64.9 Unspecified hemorrhoids; K57.30 Diverticulosis of large intestine without perforation or abscess without bleeding; I10 Essential (primary) hypertension; E11.9 Type 2 diabetes mellitus without complications; D12.0 Benign neoplasm of cecum; D12.5 Benign neoplasm of sigmoid colon